=== PATIENT | female | born 1950 | race African-American/Black ===

== ENCOUNTER 2017-07-28 10:19 | Emergency (ER) | payer MEDICARE, OTHER ==
[2017-07-28] MEDS ORDERED: Ondansetron ODT 4 MG TAB ONE (11:33)
[2017-07-28] MEDS ORDERED: Dexamethasone 10 MG/ML VIAL ONE (13:58)
== END 2017-07-28 14:16 | disposition home or self-care (01) ==
LOC: ERS 10:19
DX: J30.9 Allergic rhinitis, unspecified (principal); R09.82 Postnasal drip; E78.5 Hyperlipidemia, unspecified; E11.9 Type 2 diabetes mellitus without complications; E03.9 Hypothyroidism, unspecified; M06.9 Rheumatoid arthritis, unspecified; F17.210 Nicotine dependence, cigarettes, uncomplicated; Z79.4 Long term (current) use of insulin
CPT/HCPCS: 87081; 87430; 96372; 99406; J1100; Q0162

== ENCOUNTER 2017-08-19 13:29 | Inpatient (IN) | payer MEDICARE, OTHER ==
[2017-08-19] MEDS ORDERED: Ondansetron HCl/PF 4 MG/2 ML Vial ONE (14:08)
[2017-08-19] MEDS ORDERED: Fentanyl 100 MCG/2 ML VIAL ONE (14:08)
[2017-08-19 14:21] LABS: #Eosinphils 0.1 thou/uL (0.0-0.7); #Lymphocytes 2.5 thou/uL (1.20-3.40); #Monocytes 0.7 thou/uL (0.11-0.59); #Neutrophils 5.7 thou/uL (1.40-6.50); %Eosinophils 0.9 % (0.0-10.0); %Lymphocytes 27.6 % (21.0-51.0); %Monocytes 7.6 % (0.0-10.0); %Neutrophils 63.9 % (42.0-75.0); Hemoglobin 13.1 g/dL (12.0-16.0); Mean Corpuscular HGB CONC 33.4 g/dL (32.0-36.0); Mean Corpuscular Hemoglobin 29.3 pg (27.0-31.0); Mean Corpuscular Volume 87.6 fl (81.0-99.0); Mean Platelet Volume 7.1 fL (7.4-10.4); Platelet Count 325 thou/uL (130-400); Red Blood Cell (RBC) Count 4.48 mill/uL (4.20-5.40); White Blood Cell (WBC) Count 8.9 thou/uL (4.8-10.8)
[2017-08-19 14:27] LABS: Prothrombin Time 12.8 SEC (12.0-14.7)
[2017-08-19 14:28] LABS: ALT (SGPT) 11 U/L (8-55); AST (SGOT) 17 U/L (5-34); Alkaline Phosphatase 87 U/L (40-150); Anion Gap 16 mmol/L (10-20); BUN (Urea Nitrogen) 13 mg/dL (9.8-20.1); Bilirubin, Total 0.5 mg/dL (0.2-1.2); Calc. Creatinine Clearance 0 mL/min (70-130); Calcium 10.1 mg/dL (7.8-10.44); Carbon Dioxide 23 mmol/L (23-31); Chloride 104 mmol/L (98-107); Estimated GFR-MDRD 89; Globulin 3.6 g/dL (2.4-3.5); Glucose 200 mg/dL (80-115); Magnesium 2.2 mg/dL (1.6-2.6); Potassium 4.1 mmol/L (3.5-5.1); Protein, Total 7.6 g/dL (6.0-8.3); Sodium 139 mmol/L (136-145)
[2017-08-19 14:32] LABS: CKMB 1.1 ng/mL (0-6.6); Troponin I Less than 0.010 ng/mL (< 0.028)
[2017-08-19] MEDS ORDERED: ISOVUE-370 76%-LOCM 1 ML ONE (14:49)
--- NOTE | 2017-08-19 14:53 | RAD ---
SINGLE VIEW CHEST: Date: 08/19/17 COMPARISON: 02/17/15. HISTORY: Chest pain and shortness of breath for 5 days. FINDINGS: Single view of the chest shows a normal sized cardiomediastinal silhouette. There is no evidence of c onsolidation, mass, or pleural effusion. Hardware is seen in the cervical spine. IMPRESSION: No evidence of acute cardiopulmonary disease. POS: [facility]
[2017-08-19] MEDS ORDERED: Dextrose 50% Abboject 50 ML SYRINGE ONE ×2 (15:32→17:33)
[2017-08-19] MEDS ORDERED: Nitroglycerin 2% Ointment 1 INCH/1 GM Packet ONE ×2 (15:36→15:37)
--- NOTE | 2017-08-19 17:01 | CT ---
CTA AORTIC DISSECTION PROTOCOL UTILIZING IV CONTRAST AND 3D REFORMATTED IMAGING: FINDINGS: No aortic stenosis, occlusion, or aneurysmal formation is demonstrated. The celiac, SMA, and renal arteries are widely patent. The BRANDYN is widely patent. No definite central pulmonary embolus is evident. There is some subsegmental volume loss involving the lung bases. No enlarged lymph nodes are evident. There is focal fatty infiltration near the falciform ligament. There is a 3.9 x 2 cm hypodensity wit hin the superior aspect of the right hepatic lobe, stable since 2004, likely reflecting an area of fo antonella fatty infiltration. The adrenal glands, pancreas, spleen, and kidneys appear within normal limits. There is scattered degenerative and osteoarthritic change. No definite acute osseous abnormality is evident. IMPRESSION: 1. No acute aortic stenosis, occlusion, or aneurysmal formation demonstrated. 2. Hypodense lesions involving the right hepatic dome, as well as the liver adjacent to the falcifor m ligament, are stable since 2014, likely reflecting areas of focal fatty infiltration. 3. Bibasilar volume loss. 4. Other chronic findings as above. POS: [facility]
[2017-08-19] MEDS ORDERED: Nitroglycerin 0.4 MG TAB (25 Tab Bottle) ONE (17:39)
[2017-08-19 18:05] LABS: Troponin I Less than 0.010 ng/mL (< 0.028)
[2017-08-19] MEDS ORDERED: Ondansetron HCl/PF 4 MG in Sodium Chloride 0.9% 50 ML IVPB PRN (18:05)
[2017-08-19] MEDS ORDERED: Zolpidem Tartrate 5 MG TAB PO PRN (18:05)
[2017-08-19] MEDS ORDERED: Nitroglycerin 0.4 MG TAB (25 Tab Bottle) SL PRN (18:05)
[2017-08-19] MEDS ORDERED: Dextrose 5% in Water 1,000 ML IV PRN (18:09)
[2017-08-19] MEDS ORDERED: Dextrose 50% Abboject 50 ML SYRINGE SLOW IVP PRN (18:09)
[2017-08-19] MEDS ORDERED: Ibuprofen 100 MG/5 ML UDCUP PO PRN (18:11)
[2017-08-19 18:45] LABS: Hemoglobin A1c 7.9 % (4.0-6.0)
[2017-08-19 21:18] LABS: CKMB 1.1 ng/mL (0-6.6); Troponin I Less than 0.010 ng/mL (< 0.028)
--- NOTE | 2017-08-19 22:43 | HP ---
DATE OF ADMISSION: 08/19/2017 ADMITTING DIAGNOSIS: Chest pain. HISTORY OF PRESENT ILLNESS: This is a 66-year-old female who is being admitted to the [facility] of chest pain. The patient states that the pain started about 4-5 days ago and has been getting p rogressively worse in nature. The patient states that the pain is tight as well as sharp knife-like, worse with deep inspiration, started in the right upper back and has now gone to the right upper salvatore st on the front as well as whole chest. The patient states that she has had pain like this before; h owever, it has never been to this extreme. The patient states pain when it occurs is 10/10 in nature . Denies any other associated symptoms or complaints. Does admit to bout of nausea for a few days l ast week; however, currently does not have any. The patient was seen in the emergency room and a CT dissection protocol was done and was found to be negative for any dissection. The patient's chest x- ray was also done in the emergency room, which was found to have no acute cardiopulmonary disease pro cess noted. The patient does admit to smoking about a pack a day every 2-3 days for more than 55 yea rs. The patient's also smokes actively and has COPD. The patient herself states that she sams s never been told she has COPD. States that she was last seen by her primary care physician about 2 months ago and everything was normal. The patient denies any other associated symptoms or complaints . No alleviating or aggravating factors noted. at bedside examined in the ER. All question s answered. ALLERGIES: No known drug allergies. PAST MEDICAL HISTORY: Hypothyroidism, diabetes mellitus type 2, chronic smoking, hypertension, hyper lipidemia, diabetic neuropathy. FAMILY HISTORY: Pertinent for diabetes, hypertension on both sides. Mother, however, does not have any medical issues, otherwise both sides of the family has diabetes, hypertension, as well as coronar y artery disease. SOCIAL HISTORY: One to two packs a day every 2-3 days for 55+ years. No alcoholic beverages consume d. REVIEW OF SYSTEMS: Twelve-point review of systems performed. Pertinent positive in the HPI, otherwi se negative. PHYSICAL EXAMINATION: VITAL SIGNS: Blood pressure 115/88, heart rate of 88, respiratory rate of 12, O2 saturation 98% on 2 liters nasal cannula, temperature of 98 degrees Fahrenheit. GENERAL: The patient appears in mild distress, sitting up in bed, labored breathing noted. HEENT: Pupils equal, round, react to light and accommodation. Extraocular muscles are intact. Oral cavity moist and pink. Thyroid palpable, nontender, mobile. LUNGS: Increased AP diameter. Labored breathing noted. Clear to auscultation bilaterally. CARDIOVASCULAR: Regular rate and rhythm. S1, S2. No murmurs, rubs, or gallops appreciated. ABDOMEN: Positive bowel sounds, soft, nontender. EXTREMITIES: A 2+ peripheral pulses. Trace edema in bilateral lower extremities. NEUROLOGIC: Cranial nerves II-XII intact. Alert and oriented x3, obese patient. LABORATORY DATA: CBC within normal limits. Basic metabolic panel shows blood glucose less than 35. Rest of the BMP is normal. ASSESSMENT: 1. Chest pain. 2. Hypotension. 3. Diabetes mellitus type 2. 4. Hypothyroidism. 5. Hyperlipidemia. 6. Diabetic neuropathy. 7. Shortness of breath. 8. Dyspnea on exertion. PLAN: 1. At this point in time, we will place the patient on Internal Medicine with telemetry monitoring. Consult Cardiology. 2. We will also start the patient on D5 infusion and hold her insulins and start her on a sliding sc yaima for now. We will restart her home insulin once her blood sugars have normalized. 3. We will also obtain repeat chest x-ray tomorrow, place on nasal cannula, echocardiogram, trend en zymes. The patient may be having a bout of COPD versus pleuritic chest pain, start the patient on NS AIDs for pleuritic chest pain. Blood pressure normalized at this point in time. Earlier in the ER, the patient's blood pressure was a little low. The patient wishes to remain a FULL CODE. We will fo llow up with lab results in the morning as well as recommendations from Cardiology team. Case and pl an discussed with patient and at length. They understand and agree with this plan.
[2017-08-19] MEDS: Colchicine 0.6 MG TAB PO SCH (23:29)
[2017-08-19] MEDS: Ezetimibe 10 MG TAB PO SCH (23:29)
[2017-08-19] MEDS: Famotidine 20 MG TAB PO SCH (23:29)
[2017-08-19] MEDS: Simvastatin 40 MG TAB PO SCH (23:29)
[2017-08-19] MEDS: Morphine 4 MG/ML VIAL SLOW IVP PRN (23:30)
[2017-08-19 23:58] LABS: Troponin I Less than 0.010 ng/mL (< 0.028)
[2017-08-20] MEDS: Acetaminophen 325 MG TAB PO PRN ×2 (02:07→08:04)
[2017-08-20 05:09] LABS: #Eosinphils 0.3 thou/uL (0.0-0.7); #Lymphocytes 2.7 thou/uL (1.20-3.40); #Monocytes 0.8 thou/uL (0.11-0.59); %Basophils 0.6 % (0.0-1.0); %Eosinophils 5.3 % (0.0-10.0); %Lymphocytes 46.4 % (21.0-51.0); %Monocytes 13.1 % (0.0-10.0); %Neutrophils 34.6 % (42.0-75.0); Hemoglobin 11.1 g/dL (12.0-16.0); Mean Corpuscular HGB CONC 32.5 g/dL (32.0-36.0); Mean Corpuscular Hemoglobin 28.8 pg (27.0-31.0); Mean Corpuscular Volume 88.5 fl (81.0-99.0); Mean Platelet Volume 6.8 fL (7.4-10.4); Platelet Count 296 thou/uL (130-400); Red Blood Cell (RBC) Count 3.85 mill/uL (4.20-5.40); White Blood Cell (WBC) Count 5.9 thou/uL (4.8-10.8)
[2017-08-20 05:20] LABS: Anion Gap 8 mmol/L (10-20); BUN (Urea Nitrogen) 15 mg/dL (9.8-20.1); Calc. Creatinine Clearance 128 mL/min (70-130); Calcium 9.2 mg/dL (7.8-10.44); Carbon Dioxide 27 mmol/L (23-31); Chloride 108 mmol/L (98-107); Estimated GFR-MDRD Greater than 90; Glucose 93 mg/dL (80-115); Sodium 139 mmol/L (136-145)
[2017-08-20 05:23] LABS: CKMB 1.1 ng/mL (0-6.6); Troponin I Less than 0.010 ng/mL (< 0.028)
[2017-08-20] MEDS: Morphine 4 MG/ML VIAL SLOW IVP PRN (05:49)
[2017-08-20] MEDS: Levothyroxine Sodium 75 MCG TAB PO SCH (05:49)
[2017-08-20] MEDS: Lisinopril 2.5 MG TAB PO SCH (08:05)
[2017-08-20] MEDS: Colchicine 0.6 MG TAB PO SCH ×2 (08:05→20:55)
[2017-08-20] MEDS ORDERED: Ondansetron 2MG/ML MDV 4 MG in Sodium Chloride 0.9% 50 ML IVP PRN (08:15)
--- NOTE | 2017-08-20 08:15 | RAD ---
CHEST ONE VIEW: History: Dyspnea. Follow up. Comparison: 08-19-17 FINDINGS: Cardiac silhouette is magnified by projection. Pulmonary vasculature is unremarkable. Mediastinum is midline. No lobar consolidation or evidence of pneumothorax. IMPRESSION: 1. Stable radiographic appearance of the chest. POS: [facility]
[2017-08-20] MEDS: Famotidine 20 MG TAB PO SCH ×2 (08:38→20:55)
--- NOTE | 2017-08-20 10:15 | PDOC.PN ---
- Subjective Encounter Start Date: 08/20/17 Encounter Start Time: 11:10 Subjective: Patient with persisent chest wall pain, worse with deep breaths, -: lying flat, movement and pressing on anterior chest wall. A little -: better with Toradol. - Objective MAR Reviewed: Yes Vital Signs & Weight: Vital Signs (12 hours) Temp Pulse Resp BP Pulse Ox 08/20/17 08:05 69 08/20/17 07:34 98.3 F 69 16 96 08/20/17 07:24 98.3 F 69 16 141/64 H 96 08/20/17 04:43 97.8 F 76 15 116/59 L 98 08/19/17 22:41 98.0 F 79 19 139/68 92 L Weight Admit Weight 199 lb 12.8 oz Weight 199 lb 12.8 oz Result Diagrams: 08/20/17 04:20 08/20/17 04:20 Additional Labs: Accuchecks 08/20/17 08/19/17 08/19/17 06:32 18:58 18:12 POC Glucose 142 H 102 114 H Phys Exam - Physical Examination Constitutional: NAD HEENT: moist MMs Respiratory: no wheezing, no rales, no rhonchi, clear to auscultation bilateral TTP anteriorly bilaterally that reproduces the pain Cardiovascular: RRR, no significant murmur Gastrointestinal: soft, positive bowel sounds Musculoskeletal: no edema Neurological: non-focal, moves all 4 limbs Psychiatric: normal affect, A&O x 3 Dx/Plan (1) Chest pain Code(s): R07.9 - CHEST PAIN, UNSPECIFIED Status: Acute Qualifiers: Chest pain type: chest pain on breathing Qualified Code(s): R07.1 - Chest pain on breathing; R07.81 - Pleurodynia Comment: on NSAIDS (2) Diabetes 1.5, managed as type 2 Code(s): E13.9 - OTHER SPECIFIED DIABETES MELLITUS WITHOUT COMPLICATIONS Status: Chronic Comment: low blood sugar on admit, holding home insulin until eating well (3) Hyperlipidemia Code(s): E78.5 - HYPERLIPIDEMIA, UNSPECIFIED Status: Chronic (4) Hypothyroidism Code(s): E03.9 - HYPOTHYROIDISM, UNSPECIFIED Status: Chronic (5) Obesity (BMI 30-39.9) Code(s): E66.9 - OBESITY, UNSPECIFIED Status: Chronic (6) Tobacco abuse Code(s): Z72.0 - TOBACCO USE Status: Chronic - Plan cont current plan of care appreciate cardiology imput, NSAIDS and colchicine overnight, possibly -: home tomorrow * . - Discharge Day Encounter end time: 11:30
[2017-08-20] MEDS ORDERED: Ketorolac Tromethamine 30 MG/ML VIAL IVP SCH (10:28)
[2017-08-20] MEDS ORDERED: Aspirin 81 mg Enteric Coated Tablet PO SCH (10:30)
[2017-08-20] MEDS: Sodium Chloride 0.9% 1,000 ML IV SCH (10:58)
[2017-08-20] MEDS: Ketorolac Tromethamine 30 MG/ML VIAL IVP SCH ×2 (11:01→17:02)
--- NOTE | 2017-08-20 12:35 | CON ---
DATE OF CONSULTATION: 08/20/2017 PRIMARY CONTROL ROOM HELPER: Dr. Hermes Thrasher REASON FOR CONSULTATION: Chest pain. HISTORY OF PRESENT ILLNESS: Ms. Trisha Araiza is a delightful 66-year-old woman who has been havin g chest pain for about 2 weeks. It is continuous. It hurts when she presses with her fingers, hurts when she sits up or moves in any way. The patient has no pressure, heaviness, or squeezing typical of angina, but her pain is intense. PAST MEDICAL HISTORY: 1. Diabetes. 2. Hypertension. 3. She says she has rheumatoid arthritis with "a touch of lupus" as well as gout. MEDICATIONS PRIOR TO ADMISSION: 1. The patient was taking simvastatin. 2. Zetia. 3. Aspirin. 4. Tramadol as needed. 5. Colchicine which she had been out for a couple of weeks. ALLERGIES: None known. REVIEW OF SYSTEMS: CONSTITUTIONAL: No significant weight gain or loss. VISION: No changes. HEARING: No changes. PULMONARY: No cough or wheezing. GASTROINTESTINAL: No nausea, vomiting, diarrhea. SKIN: No rashes. NEUROLOGIC: No unilateral weakness or numbness. PSYCHIATRIC: No unusual depression or anxiety. HEMATOLOGIC: No unusual bruising. GENITOURINARY: No burning with urination. PHYSICAL EXAMINATION: GENERAL: This is a pleasant 66-year-old woman with a lot of chest pain. VITAL SIGNS: Her blood pressure 141/64, pulse 70, it is regular. LUNGS: Clear. CARDIAC: Normal S1, normal S2. There is no murmur, rub or gallop. ABDOMEN: Soft, nontender, no hepatosplenomegaly. EXTREMITIES: Warm, dry, no clubbing or cyanosis, no edema. Peripheral pulses are intact. SKIN: Warm and dry. PERTINENT LABORATORY AND X-RAY FINDINGS: Troponin levels are negative. Her creatinine level is 0.6. Her hemoglobin is 11.1. A recent cardiac catheterization by Dr. Thrasher done in 2014 showed no significant coronary disease, only mild nonobstructive plaque. The LAD had a 20% stenosis. On examination the patient's pain is duplicated with palpation of the costochondral junctions and ihsan rnum. ASSESSMENT: 1. Chest wall pain. 2. History of arthritis. 3. Diabetes. 4. No significant coronary disease at catheterization 2014. 5. History of rheumatoid arthritis, "lupus touch" and gout. PLAN: 1. Agree with restarting colchicine. 2. We will give her intravenous Toradol for 24 hours. 3. If needed, steroids could be given, but blood sugar would need to be followed as that would incre ase her blood sugar. 4. Dr. Thrasher to resume care tomorrow. The patient's pain does not appear of cardiac origin.
[2017-08-20] MEDS: HumaLOG 300 UNITS/3 ML VIAL SC PRN ×3 (12:51→20:56)
[2017-08-20 12:57] LABS: Troponin I Less than 0.010 ng/mL (< 0.028)
[2017-08-20] MEDS: Simvastatin 40 MG TAB PO SCH (20:55)
[2017-08-20] MEDS: Ezetimibe 10 MG TAB PO SCH (20:55)
[2017-08-21] MEDS: Ketorolac Tromethamine 30 MG/ML VIAL IVP SCH ×3 (00:49→11:21)
[2017-08-21] MEDS: Sodium Chloride 0.9% 1,000 ML IV SCH (00:49)
[2017-08-21 04:54] LABS: #Eosinphils 0.3 thou/uL (0.0-0.7); #Monocytes 0.5 thou/uL (0.11-0.59); #Neutrophils 1.7 thou/uL (1.40-6.50); %Basophils 0.4 % (0.0-1.0); %Eosinophils 5.6 % (0.0-10.0); %Lymphocytes 45.1 % (21.0-51.0); %Monocytes 11.8 % (0.0-10.0); %Neutrophils 37.1 % (42.0-75.0); Hemoglobin 11.4 g/dL (12.0-16.0); Mean Corpuscular Hemoglobin 29.1 pg (27.0-31.0); Mean Corpuscular Volume 88.3 fl (81.0-99.0); Mean Platelet Volume 6.6 fL (7.4-10.4); Platelet Count 290 thou/uL (130-400); RBC Distribution Width 13.6 % (11.5-14.5); Red Blood Cell (RBC) Count 3.93 mill/uL (4.20-5.40); White Blood Cell (WBC) Count 4.5 thou/uL (4.8-10.8)
[2017-08-21 05:16] LABS: Anion Gap 10 mmol/L (10-20); BUN (Urea Nitrogen) 12 mg/dL (9.8-20.1); Calc. Creatinine Clearance 135 mL/min (70-130); Carbon Dioxide 23 mmol/L (23-31); Chloride 106 mmol/L (98-107); Estimated GFR-MDRD Greater than 90; Glucose 211 mg/dL (80-115); Sodium 135 mmol/L (136-145)
[2017-08-21] MEDS: Levothyroxine Sodium 75 MCG TAB PO SCH (05:22)
[2017-08-21 05:57] VITALS: BMI 37.1
[2017-08-21] MEDS: Famotidine 20 MG TAB PO SCH (08:04)
[2017-08-21] MEDS: HumaLOG 300 UNITS/3 ML VIAL SC PRN ×2 (08:04→12:32)
[2017-08-21] MEDS: Lisinopril 2.5 MG TAB PO SCH (08:04)
[2017-08-21] MEDS: Colchicine 0.6 MG TAB PO SCH (08:04)
--- NOTE | 2017-08-21 08:49 | PDOC.PN ---
- Subjective Encounter Start Date: 08/21/17 Encounter Start Time: 11:30 Subjective: Patient with some improvement in chest pain with Toradol. No other symptoms - Objective MAR Reviewed: Yes Vital Signs & Weight: Vital Signs (12 hours) Temp Pulse Resp BP Pulse Ox 08/21/17 08:04 79 08/21/17 07:40 98.2 F 79 18 137/65 97 08/21/17 04:27 97.7 F 70 16 96/52 L 92 L 08/21/17 00:31 98.1 F 69 18 137/71 99 08/20/17 20:56 98 F 74 16 98 Weight Admit Weight 199 lb 12.8 oz Weight 203 lb 1.6 oz I&O: 08/20/17 08/21/17 08/22/17 06:59 06:59 06:59 Intake Total 1420 Output Total 400 Balance 1020 Result Diagrams: 08/21/17 04:15 08/21/17 04:15 Additional Labs: Accuchecks 08/21/17 08/20/17 08/20/17 05:48 20:45 16:50 POC Glucose 237 H 392 H 292 H 08/20/17 12:36 POC Glucose 472 H Phys Exam - Physical Examination Constitutional: NAD HEENT: moist MMs Respiratory: no wheezing, no rales, no rhonchi anterior chest wall TTP, reproduces pain Cardiovascular: RRR Gastrointestinal: soft, positive bowel sounds Neurological: non-focal, moves all 4 limbs Psychiatric: normal affect, A&O x 3 Dx/Plan (1) Chest pain Code(s): R07.9 - CHEST PAIN, UNSPECIFIED Status: Acute Qualifiers: Chest pain type: chest pain on breathing Qualified Code(s): R07.1 - Chest pain on breathing; R07.81 - Pleurodynia Comment: on NSAIDS, ECHO with EF 65-70%, diastolic dysfunction (2) Diabetes 1.5, managed as type 2 Code(s): E13.9 - OTHER SPECIFIED DIABETES MELLITUS WITHOUT COMPLICATIONS Status: Chronic Comment: low blood sugar on admit, holding home insulin until eating well (3) Hyperlipidemia Code(s): E78.5 - HYPERLIPIDEMIA, UNSPECIFIED Status: Chronic (4) Hypothyroidism Code(s): E03.9 - HYPOTHYROIDISM, UNSPECIFIED Status: Chronic (5) Obesity (BMI 30-39.9) Code(s): E66.9 - OBESITY, UNSPECIFIED Status: Chronic (6) Tobacco abuse Code(s): Z72.0 - TOBACCO USE Status: Chronic - Plan cont current plan of care Cleared by cardiology, home today on NSAIDS * . - Discharge Day Encounter end time: 12:00
[2017-08-21] MEDS ORDERED: Aspirin 81 mg Enteric Coated Tablet PO SCH ×2 (09:00)
[2017-08-21] MEDS ORDERED: Insulin NPH/Reg Insulin Hm 300 UNITS/3 ML VIAL SC SCH ×2 (09:15→21:00)
[2017-08-21 11:30] VITALS: BP 142/65; TEMP 97.9
--- NOTE | 2017-08-22 14:33 | DIS ---
PRIMARY CARE PHYSICIAN: Dr. Mumtaz Sutton PRIMARY INVERFORM MACHINE OPERATOR: Dr. Thrasher. REASON FOR ADMISSION: Chest pain. DISCHARGE DIAGNOSES: 1. Atypical chest pain, likely musculoskeletal. 2. Diabetes mellitus type 2. 3. Hyperlipidemia. 4. Hypothyroidism. 5. Obesity. 6. Tobacco abuse. PROCEDURES: 1. CT dissection protocol showing no evidence of aortic dissection or stenosis or aneurysm. 2. Echocardiogram showing ejection fraction of 65-70% and diastolic dysfunction. CONSULTATIONS: Cardiology, Dr. Barron for Dr. Thrasher. HOSPITAL COURSE: This is a 66-year-old female with known history of diabetes, but no coronary artery disease who is a smoker. She came in with a 4-5 day history of chest pain, sharp knife-like, worse with inspiration. It started in her right upper back and moved to her chest. She had something marilyn lar before, but never this bad. The patient had a negative CT dissection protocol. She was admitted and Cardiology was consulted. Dr. Barron and Dr. Thrasher saw her. She had an echocardiogram as ab ove. The patient was determined to have a musculoskeletal chest wall pain. She was put on Toradol w ith improvement in her pain. The day of discharge Dr. Thrasher cleared her for discharge to follow u p with him and do a stress test as an outpatient. DISCHARGE MANAGEMENT: Discharged home. Follow up with Dr. Thrasher in 2-[address] Herman lopez 7 days. ACTIVITY: As tolerated. DIET: Diabetic diet. The patient is to stop smoking. DISCHARGE MEDICATIONS: 1. Indomethacin 50 mg every 8 hours as needed for pain. 2. Lisinopril 2.5 mg daily. 3. Metoprolol succinate 25 mg daily. 4. Protonix 40 mg daily. 5. Tramadol as needed. 6. Zetia 1 tablet each night. 7. Simvastatin 40 mg at night. 8. Tylenol with codeine as needed. 9. Aspirin 81 mg daily. 10. Humalog 70/25, 50 units in the morning and 30 units at night. 11. Colchicine 0.6 mg twice a day. 12. Levothyroxine 75 mcg daily.
== END 2017-08-21 13:08 | disposition home or self-care (01) | DRG 313 ==
LOC: ERS 13:29 → 2NO 17:54
PROVIDERS: ADMIT Internal Medicine; ATTEND Internal Medicine
DX: R07.89 Other chest pain (principal); E11.42 Type 2 diabetes mellitus with diabetic polyneuropathy; E03.9 Hypothyroidism, unspecified; E78.5 Hyperlipidemia, unspecified; E66.9 Obesity, unspecified; F17.210 Nicotine dependence, cigarettes, uncomplicated; Z68.36 Body mass index [BMI] 36.0-36.9, adult; Z79.82 Long term (current) use of aspirin; Z79.4 Long term (current) use of insulin; Z79.899 Other long term (current) drug therapy
CPT/HCPCS: 36415; 36416; 71045; 71275; 80048; 80053; 82553; 83036; 83735; 83880; 84443; 84484; 84550; 84681; 85025; 85610; 86141; 93005; 93306; 96361; 96374; 96375; 96376; A4216; J1885; J2270; J2405; J3010; J7050

== ENCOUNTER 2017-09-26 20:30 | Emergency (ER) | payer MEDICARE, OTHER ==
--- NOTE | 2017-09-26 21:08 | RAD ---
CHEST ONE VIEW: 09/26/17 HISTORY: Emergency exam. COMPARISON: Chest one view 08/20/17. FINDINGS: Lungs are clear. No pneumothorax or effusion. The cardiac silhouette and mediastinal contours are wit hin normal limits. IMPRESSION: No acute intrathoracic abnormality. POS: [facility]
[2017-09-26 21:12] LABS: #Basophils 0.1 thou/uL (0.0-0.2); #Eosinphils 0.1 thou/uL (0.0-0.7); #Lymphocytes 3.1 thou/uL (1.20-3.40); #Monocytes 1.1 thou/uL (0.11-0.59); #Neutrophils 4.5 thou/uL (1.40-6.50); %Basophils 0.9 % (0.0-1.0); %Eosinophils 1.2 % (0.0-10.0); %Lymphocytes 35.2 % (21.0-51.0); %Monocytes 12.1 % (0.0-10.0); %Neutrophils 50.6 % (42.0-75.0); Hemoglobin 12.8 g/dL (12.0-16.0); Mean Corpuscular HGB CONC 33.3 g/dL (32.0-36.0); Mean Corpuscular Hemoglobin 29.5 pg (27.0-31.0); Mean Corpuscular Volume 88.6 fl (81.0-99.0); Mean Platelet Volume 6.7 fL (7.4-10.4); Platelet Count 361 thou/uL (130-400); RBC Distribution Width 13.4 % (11.5-14.5); Red Blood Cell (RBC) Count 4.34 mill/uL (4.20-5.40); White Blood Cell (WBC) Count 8.8 thou/uL (4.8-10.8)
[2017-09-26 21:29] LABS: ALT (SGPT) 12 U/L (8-55); AST (SGOT) 14 U/L (5-34); Albumin 4.2 g/dL (3.4-4.8); Alkaline Phosphatase 89 U/L (40-150); Anion Gap 13 mmol/L (10-20); BUN (Urea Nitrogen) 10 mg/dL (9.8-20.1); CK (CPK) 104 U/L (29-168); Calc. Creatinine Clearance 0 mL/min (70-130); Calcium 10.3 mg/dL (7.8-10.44); Carbon Dioxide 25 mmol/L (23-31); Chloride 105 mmol/L (98-107); Estimated GFR-MDRD Greater than 90; Globulin 3.1 g/dL (2.4-3.5); Glucose 79 mg/dL (80-115); Lipase 4 U/L (8-78); Potassium 3.1 mmol/L (3.5-5.1); Protein, Total 7.3 g/dL (6.0-8.3); Sodium 140 mmol/L (136-145)
[2017-09-26 21:33] LABS: CKMB 1.2 ng/mL (0-6.6); Troponin I Less than 0.010 ng/mL (< 0.028)
[2017-09-26] MEDS ORDERED: Diazepam 5 MG TAB ONE (21:51)
[2017-09-26] MEDS ORDERED: Potassium Chloride 20 MEQ TAB ONE (22:32)
[2017-09-26] MEDS ORDERED: Lidocaine Viscous Sol 2% 15 ml UD Cup ONE (23:40)
[2017-09-26] MEDS ORDERED: Mag-Al 1200 mg/1200 mg/30 ML UDCUP ONE (23:40)
[2017-09-26 23:44] LABS: Troponin I 0.014 ng/mL (< 0.028)
--- NOTE | 2017-09-28 17:22 | EKG ---
Test Reason : Blood Pressure : / mmHG Vent. Rate : 110 BPM Atrial Rate : 110 BPM P-R Int : 128 ms QRS Dur : 068 ms QT Int : 340 ms P-R-T Axes : 063 003 052 degrees QTc Int : 460 ms Sinus tachycardia Otherwise normal ECG Confirmed by WENDY VEGA ([id number]), editorial cartoonist DINESH HOLDER ([id number]) on 09/28/2017 5:22:06 PM Referred By: Confirmed By:WENDY VEGA
== END 2017-09-27 00:18 | disposition home or self-care (01) ==
LOC: ERS 20:30
DX: R07.9 Chest pain, unspecified (principal); E03.9 Hypothyroidism, unspecified; E11.9 Type 2 diabetes mellitus without complications; Z79.4 Long term (current) use of insulin; F17.210 Nicotine dependence, cigarettes, uncomplicated; Z79.82 Long term (current) use of aspirin; Z79.891 Long term (current) use of opiate analgesic; Z79.899 Other long term (current) drug therapy
CPT/HCPCS: 36415; 71045; 80053; 82550; 82553; 83690; 84484; 85025; 85379; 93005; 99406

== ENCOUNTER 2017-09-27 10:39 | Emergency (ER) | payer MEDICARE, OTHER ==
[2017-09-27 11:36] LABS: #Basophils 0.1 thou/uL (0.0-0.2); #Eosinphils 0.1 thou/uL (0.0-0.7); #Lymphocytes 1.7 thou/uL (1.20-3.40); #Monocytes 0.8 thou/uL (0.11-0.59); #Neutrophils 4.5 thou/uL (1.40-6.50); %Basophils 0.9 % (0.0-1.0); %Eosinophils 0.7 % (0.0-10.0); %Lymphocytes 23.9 % (21.0-51.0); %Monocytes 11.1 % (0.0-10.0); %Neutrophils 63.4 % (42.0-75.0); Hemoglobin 12.3 g/dL (12.0-16.0); Mean Corpuscular HGB CONC 33.6 g/dL (32.0-36.0); Mean Corpuscular Hemoglobin 30.1 pg (27.0-31.0); Mean Corpuscular Volume 89.5 fl (81.0-99.0); Mean Platelet Volume 6.7 fL (7.4-10.4); Platelet Count 312 thou/uL (130-400); RBC Distribution Width 13.4 % (11.5-14.5); Red Blood Cell (RBC) Count 4.09 mill/uL (4.20-5.40); White Blood Cell (WBC) Count 7.1 thou/uL (4.8-10.8)
--- NOTE | 2017-09-27 11:43 | RAD ---
SINGLE VIEW OF THE CHEST: COMPARISON: 09/26/17. HISTORY: Chest pain. FINDINGS: Single view of the chest shows a normal sized cardiomediastinal silhouette. There is no evidence of c onsolidation, mass, or pleural effusion. Degenerative changes are seen in the spine. Hardware is see n in the cervical spine. IMPRESSION: No evidence of acute cardiopulmonary disease. POS: [facility]
[2017-09-27 11:50] LABS: ALT (SGPT) 10 U/L (8-55); AST (SGOT) 14 U/L (5-34); Albumin 3.8 g/dL (3.4-4.8); Alkaline Phosphatase 81 U/L (40-150); Anion Gap 15 mmol/L (10-20); BUN (Urea Nitrogen) 11 mg/dL (9.8-20.1); Bilirubin, Total 0.9 mg/dL (0.2-1.2); CK (CPK) 72 U/L (29-168); Calc. Creatinine Clearance 0 mL/min (70-130); Calcium 9.3 mg/dL (7.8-10.44); Carbon Dioxide 22 mmol/L (23-31); Chloride 105 mmol/L (98-107); Estimated GFR-MDRD Greater than 90; Globulin 2.8 g/dL (2.4-3.5); Glucose 223 mg/dL (80-115); Potassium 3.5 mmol/L (3.5-5.1); Protein, Total 6.6 g/dL (6.0-8.3); Sodium 138 mmol/L (136-145)
[2017-09-27 11:53] LABS: CKMB 1.3 ng/mL (0-6.6); Troponin I Less than 0.010 ng/mL (< 0.028)
[2017-09-27] MEDS ORDERED: Morphine 4 MG/ML VIAL ONE (12:07)
[2017-09-27] MEDS ORDERED: Ketorolac Tromethamine 30 MG/ML VIAL ONE (12:07)
== END 2017-09-27 16:12 | disposition home or self-care (01) ==
LOC: ERS 10:39
DX: S29.011A Strain of muscle and tendon of front wall of thorax, initial encounter (principal); M32.9 Systemic lupus erythematosus, unspecified; M06.9 Rheumatoid arthritis, unspecified; E78.5 Hyperlipidemia, unspecified; E11.9 Type 2 diabetes mellitus without complications; E03.9 Hypothyroidism, unspecified; M10.9 Gout, unspecified; F17.210 Nicotine dependence, cigarettes, uncomplicated; Z79.4 Long term (current) use of insulin; Z79.82 Long term (current) use of aspirin; Z79.899 Other long term (current) drug therapy; X58.XXXA Exposure to other specified factors, initial encounter
CPT/HCPCS: 36415; 36416; 71045; 80053; 82550; 82553; 84484; 85025; 93005; 94760; 96374; 96375; J1885; J2270

== ENCOUNTER 2017-10-16 03:44 | Emergency (ER) | payer MEDICARE, OTHER ==
[2017-10-16 04:29] LABS: #Eosinphils 0.1 thou/uL (0.0-0.7); #Monocytes 0.8 thou/uL (0.11-0.59); #Neutrophils 3.9 thou/uL (1.40-6.50); %Basophils 0.5 % (0.0-1.0); %Eosinophils 1.2 % (0.0-10.0); %Lymphocytes 38.4 % (21.0-51.0); %Monocytes 9.7 % (0.0-10.0); %Neutrophils 50.1 % (42.0-75.0); Hemoglobin 12.9 g/dL (12.0-16.0); Mean Corpuscular HGB CONC 32.5 g/dL (32.0-36.0); Mean Corpuscular Hemoglobin 28.6 pg (27.0-31.0); Mean Corpuscular Volume 87.9 fl (81.0-99.0); Mean Platelet Volume 6.4 fL (7.4-10.4); Platelet Count 303 thou/uL (130-400); RBC Distribution Width 13.2 % (11.5-14.5); White Blood Cell (WBC) Count 7.8 thou/uL (4.8-10.8)
[2017-10-16] MEDS ORDERED: Lorazepam 2 MG/ML VIAL ONE (04:30)
[2017-10-16 04:50] LABS: ALT (SGPT) 13 U/L (8-55); AST (SGOT) 19 U/L (5-34); Albumin 4.2 g/dL (3.4-4.8); Alkaline Phosphatase 85 U/L (40-150); Anion Gap 17 mmol/L (10-20); BUN (Urea Nitrogen) 7 mg/dL (9.8-20.1); Calc. Creatinine Clearance 0 mL/min (70-130); Calcium 10.1 mg/dL (7.8-10.44); Carbon Dioxide 21 mmol/L (23-31); Chloride 103 mmol/L (98-107); Estimated GFR-MDRD Greater than 90; Globulin 3.2 g/dL (2.4-3.5); Glucose 265 mg/dL (80-115); Protein, Total 7.4 g/dL (6.0-8.3); Sodium 138 mmol/L (136-145)
[2017-10-16 04:54] LABS: CKMB 2.7 ng/mL (0-6.6); Troponin I Less than 0.010 ng/mL (< 0.028)
[2017-10-16 05:24] LABS: Amphetamine Not Detected (NotDetected); Barbiturates Screen Not Detected (NotDetected); Benzodiazepine Screen Not Detected (NotDetected); Cocaine Metabolite Screen Not Detected (NotDetected); Medtox Control Line Valid? VALID (VALID); Medtox Reader # READER 4; Methadone Not Detected (NotDetected); Methamphetamine Not Detected (NotDetected); Opiate Screen Not Detected (NotDetected); Oxycodone Screen Not Detected (NotDetected); Phencyclidine (PCP) Not Detected (NotDetected); THC/Cannabinoid Screen Not Detected (NotDetected); Tricyclic Screen Not Detected (NotDetected)
[2017-10-16] MEDS ORDERED: Potassium Chloride 20 MEQ TAB ONE (05:31)
--- NOTE | 2017-10-16 07:50 | RAD ---
PORTABLE CHEST 1 VIEW: Date: 10/16/17 Time: 0417 hours HISTORY: Chest pain. FINDINGS: Comparison made with exam of 09/27/17. The heart size is normal. The lungs are expanded without focal areas of consolidation, pneumothorax, or pleural effusions. There are postop changes in the lower cervical spine. IMPRESSION: No acute process. POS: [facility]
== END 2017-10-16 06:30 | disposition home or self-care (01) ==
LOC: ERS 03:44
DX: R07.89 Other chest pain (principal); E78.5 Hyperlipidemia, unspecified; E11.9 Type 2 diabetes mellitus without complications; Z79.4 Long term (current) use of insulin; E03.9 Hypothyroidism, unspecified; M10.9 Gout, unspecified; F17.210 Nicotine dependence, cigarettes, uncomplicated; Z79.82 Long term (current) use of aspirin
CPT/HCPCS: 36415; 71045; 80053; 80306; 82553; 84443; 84484; 85025; 85379; 93005; 96374; J2060

== ENCOUNTER 2017-12-15 04:56 | Emergency (ER) | payer MEDICARE, OTHER ==
[2017-12-15 05:44] LABS: #Basophils 0.1 thou/uL (0.0-0.2); #Lymphocytes 3.1 thou/uL (1.20-3.40); #Monocytes 0.8 thou/uL (0.11-0.59); #Neutrophils 3.7 thou/uL (1.40-6.50); %Basophils 1.1 % (0.0-1.0); %Eosinophils 0.6 % (0.0-10.0); %Monocytes 10.5 % (0.0-10.0); %Neutrophils 47.8 % (42.0-75.0); Hemoglobin 12.7 g/dL (12.0-16.0); Mean Corpuscular HGB CONC 33.8 g/dL (32.0-36.0); Mean Corpuscular Hemoglobin 29.6 pg (27.0-31.0); Mean Corpuscular Volume 87.6 fL (78.0-98.0); Mean Platelet Volume 6.7 fL (7.4-10.4); Platelet Count 287 thou/uL (130-400); RBC Distribution Width 13.8 % (11.5-14.5); Red Blood Cell (RBC) Count 4.31 mill/uL (4.20-5.40); White Blood Cell (WBC) Count 7.8 thou/uL (4.8-10.8)
[2017-12-15 06:06] LABS: ALT (SGPT) 9 U/L (8-55); AST (SGOT) 13 U/L (5-34); Albumin 4.1 g/dL (3.4-4.8); Alkaline Phosphatase 75 U/L (40-150); Anion Gap 15 mmol/L (10-20); BUN (Urea Nitrogen) 7 mg/dL (9.8-20.1); Bilirubin, Total 0.6 mg/dL (0.2-1.2); Calc. Creatinine Clearance 0 mL/min (70-130); Calcium 9.7 mg/dL (7.8-10.44); Carbon Dioxide 24 mmol/L (23-31); Chloride 105 mmol/L (98-107); Estimated GFR-MDRD Greater than 90; Globulin 2.8 g/dL (2.4-3.5); Protein, Total 6.9 g/dL (6.0-8.3); Sodium 141 mmol/L (136-145)
[2017-12-15 06:07] LABS: Acetaminophen Less than 6.0 mcg/mL (10.0-30.0); Alcohol Less than 10 mg/dL (Less than 10); CK (CPK) 96 U/L (29-168); Salicylate Less than 8.0 mg/dL (15.0-30.0); Uric Acid 2.6 mg/dL (2.6-6.0)
[2017-12-15 06:14] LABS: Glucose 54 mg/dL (80-115); Potassium 2.8 mmol/L (3.5-5.1)
[2017-12-15 07:35] LABS: Bilirubin Negative (Negative); Blood, Urine Negative (Negative); Clarity CLEAR (Clear); Glucose, Urine (Dipstick) 250 mg/dL (Negative); Leukocyte Negative (Negative); Nitrite Negative (Negative); Protein, Urine (Dipstick) Negative (Neg-Trace); Specific Gravity, Urine 1.008 (1.002-1.036)
[2017-12-15 07:44] LABS: Cocaine Metabolite Screen Not Detected (NotDetected); Medtox Reader # READER 1; Methamphetamine Not Detected (NotDetected); Phencyclidine (PCP) Not Detected (NotDetected); THC/Cannabinoid Screen Not Detected (NotDetected)
[2017-12-15 07:45] LABS: Amphetamine Not Detected (NotDetected); Barbiturates Screen Not Detected (NotDetected); Benzodiazepine Screen Not Detected (NotDetected); Medtox Control Line Valid? VALID (VALID); Methadone Not Detected (NotDetected); Opiate Screen Not Detected (NotDetected); Oxycodone Screen Not Detected (NotDetected); Tricyclic Screen Not Detected (NotDetected)
--- NOTE | 2017-12-15 08:06 | RAD ---
RADIOGRAPH CHEST 1 VIEW: HISTORY: 67-year-old female with dyspnea. FINDINGS: There is no air space density, pulmonary edema, or pneumothorax. The lateral costophrenic angles are sharp. IMPRESSION: No acute pulmonary findings. jn [] POS: [facility]
[2017-12-15] MEDS ORDERED: HYDROcodone/Acetaminophen 5/325 mg Tablet ONE ×2 (08:13→13:55)
--- NOTE | 2017-12-15 08:23 | RAD ---
RADIOGRAPH RIGHT SECOND DIGIT 3 VIEWS: Date: 12/15/17 HISTORY: 67-year-old female with right index finger pain. FINDINGS: There is no fracture or dislocation. No high grade DJD. No radiopaque foreign body. IMPRESSION: Negative. POS: [facility]
[2017-12-15] MEDS ORDERED: Ketorolac Tromethamine 30 MG/ML VIAL ONE (16:27)
[2017-12-15] MEDS ORDERED: Insulin Regular 300 UNITS/3 ML VIAL ONE (16:42)
== END 2017-12-15 17:09 ==
LOC: ERS 04:56
DX: M79.644 Pain in right finger(s) (principal); R45.851 Suicidal ideations; E78.5 Hyperlipidemia, unspecified; E11.9 Type 2 diabetes mellitus without complications; M10.9 Gout, unspecified; F41.9 Anxiety disorder, unspecified; M06.9 Rheumatoid arthritis, unspecified; F17.210 Nicotine dependence, cigarettes, uncomplicated; Z79.4 Long term (current) use of insulin; Z79.899 Other long term (current) drug therapy; Z79.891 Long term (current) use of opiate analgesic; Z79.82 Long term (current) use of aspirin
CPT/HCPCS: 36415; 36416; 71045; 80053; 80306; 80307; 81003; 82550; 84443; 84550; 85025; 93005; J1815; J1885

== ENCOUNTER 2018-01-01 13:05 | Emergency (ER) | payer MEDICARE, OTHER ==
[2018-01-01] MEDS ORDERED: Lorazepam 2 MG/ML VIAL ONE (13:47)
[2018-01-01 13:57] LABS: #Basophils 0.1 thou/uL (0.0-0.2); #Eosinphils 0.1 thou/uL (0.0-0.7); #Lymphocytes 2.7 thou/uL (1.20-3.40); #Monocytes 0.8 thou/uL (0.11-0.59); #Neutrophils 5.1 thou/uL (1.40-6.50); %Basophils 0.6 % (0.0-1.0); %Eosinophils 1.3 % (0.0-10.0); %Lymphocytes 30.9 % (21.0-51.0); %Monocytes 9.2 % (0.0-10.0); %Neutrophils 58.1 % (42.0-75.0); Hemoglobin 11.8 g/dL (12.0-16.0); Mean Corpuscular HGB CONC 33.9 g/dL (32.0-36.0); Mean Corpuscular Hemoglobin 29.4 pg (27.0-31.0); Mean Corpuscular Volume 86.9 fL (78.0-98.0); Mean Platelet Volume 6.4 fL (7.4-10.4); Platelet Count 331 thou/uL (130-400); RBC Distribution Width 13.4 % (11.5-14.5); White Blood Cell (WBC) Count 8.7 thou/uL (4.8-10.8)
[2018-01-01 14:22] LABS: ALT (SGPT) 8 U/L (8-55); AST (SGOT) 12 U/L (5-34); Albumin 3.8 g/dL (3.4-4.8); Alkaline Phosphatase 86 U/L (40-150); Anion Gap 15 mmol/L (10-20); BUN (Urea Nitrogen) 14 mg/dL (9.8-20.1); Bilirubin, Total 0.5 mg/dL (0.2-1.2); Calc. Creatinine Clearance 0 mL/min (70-130); Calcium 9.6 mg/dL (7.8-10.44); Carbon Dioxide 24 mmol/L (23-31); Chloride 104 mmol/L (98-107); Estimated GFR-MDRD Greater than 90; Globulin 3.4 g/dL (2.4-3.5); Glucose 162 mg/dL (80-115); Lipase 6 U/L (8-78); Potassium 4.1 mmol/L (3.5-5.1); Protein, Total 7.2 g/dL (6.0-8.3); Sodium 139 mmol/L (136-145)
--- NOTE | 2018-01-01 14:54 | ULT ---
ULTRASOUND ABDOMEN: Date: 01/01/18 HISTORY: Right flank pain. FINDINGS: There is a 2.3 cm hyperechoic area with dome corresponding to the finding on the CT scan of 08/19/17, consistent with focal fatty infiltration. No intrahepatic ductal dilatation is seen. No gallstones, gallbladder wall thickening, or pericholecystic fluid is identified. The common duct measures 7.0 mm in diameter. The right kidney is unremarkable. No free fluid is seen in Morison's pouch. Pancreas not visualized due to overlying bowel gas. IMPRESSION: No evidence of cholelithiasis. POS: [facility]
--- NOTE | 2018-01-01 15:05 | CT ---
ABDOMEN CT WITHOUT CONTRAST PELVIC CT WITHOUT CONTRAST: Date: 01/01/18 HISTORY: Right flank pain x5 days. COMPARISON: 06/14/16. TECHNIQUE: An AP and pelvic CT are performed without contrast. Coronal reformatted images are submitted for inte rpretation. FINDINGS: ABDOMEN CT: Dependent atelectatic changes in the lung bases. Areas of scarring in the left lung base are noted. H eart size is upper normal. No significant pericardial fluid. The descending thoracic aorta and abdomi nal aorta have a normal caliber. No periaortic fat stranding. Limited evaluation of the solid organs with the lack of IV contrast. There is fatty infiltration of t he liver near the falciform ligament. Grossly, the solid organs are unremarkable. Unremarkable gallbladder. No gastrohepatic, retrocrural, or periportal lymphadenopathy. No mesenteric mass, lymphadenopathy, free air, or free fluid. There is a small ventral abdominal wall hernia containing mesenteric fat. No bowel herniation. Limited evaluation of the alimentary canal by lack of oral contrast. No evidence of small bowel obstr uction. Ileocecal junction is normal. Appendix is not appreciated. Nevertheless, no inflammation of t he cecal apex. Scattered fecal material in a nondistended, nondilated colon. No diverticulitis. Bilaterally, no evidence of obstructive uropathy. There is no evidence of hydronephrosis, nephrolithi asis, or perinephric fat stranding. Bilateral ureters are unremarkable. Unremarkable gallbladder. PELVIC CT: No mass, lymphadenopathy, free air, or free fluid. Hysterectomy changes are noted. Unremarkable urina ry bladder. No lytic or blastic lesions in the osseous structures. IMPRESSION: No evidence of nephrolithiasis or obstructive uropathy. POS: [facility]
[2018-01-01] MEDS ORDERED: Ketorolac Tromethamine 30 MG/ML VIAL ONE (15:14)
[2018-01-01 15:21] LABS: Bilirubin Small (Negative); Blood, Urine Negative (Negative); Clarity CLEAR (Clear); Glucose, Urine (Dipstick) 100 mg/dL (Negative); Leukocyte Negative (Negative); Nitrite Negative (Negative); Protein, Urine (Dipstick) Negative (Neg-Trace); Specific Gravity, Urine 1.032 (1.002-1.036); pH, Urine 6.5 (5.0-9.0)
== END 2018-01-01 17:10 | disposition home or self-care (01) ==
LOC: ERS 13:05
DX: R10.9 Unspecified abdominal pain (principal); F41.9 Anxiety disorder, unspecified; E11.9 Type 2 diabetes mellitus without complications; E03.9 Hypothyroidism, unspecified; M10.9 Gout, unspecified; M06.9 Rheumatoid arthritis, unspecified; F17.210 Nicotine dependence, cigarettes, uncomplicated; E78.5 Hyperlipidemia, unspecified; Z79.82 Long term (current) use of aspirin; Z79.899 Other long term (current) drug therapy; Z79.4 Long term (current) use of insulin
CPT/HCPCS: 36415; 74176; 76705; 80053; 81003; 83690; 85025; 96361; 96374; 96375; J1885; J2060; J2270

== ENCOUNTER 2018-08-16 12:45 | Observation (INO) | payer MEDICARE, OTHER ==
[2018-08-16] MEDS ORDERED: Labetalol HCl 100 MG/20 ML VIAL ONE (13:12)
[2018-08-16] MEDS ORDERED: Aspirin Chewable 81 MG TAB ONE (13:12)
--- NOTE | 2018-08-16 13:15 | RAD ---
FPortable chest radiograph: 08/16/2018 COMPARISON: 12/15/2017 HISTORY:Left-sided chest pain FINDINGS: No pneumothorax or pleural fluid. No focal consolidation or alveolar edema. Heart and media stinal contours are stable. Multilevel degenerative change of the thoracic spine. IMPRESSION: No acute findings.
[2018-08-16 13:42] LABS: #Basophils 0.1 thou/uL (0.0-0.2); #Lymphocytes 1.7 thou/uL (1.20-3.40); #Monocytes 0.6 thou/uL (0.11-0.59); #Neutrophils 6.3 thou/uL (1.40-6.50); %Basophils 0.9 % (0.0-1.0); %Eosinophils 0.5 % (0.0-10.0); %Lymphocytes 19.4 % (21.0-51.0); %Monocytes 7.2 % (0.0-10.0); Hemoglobin 13.1 g/dL (12.0-16.0); Mean Corpuscular HGB CONC 32.1 g/dL (32.0-36.0); Mean Corpuscular Hemoglobin 29.3 pg (27.0-31.0); Mean Corpuscular Volume 91.2 fL (78.0-98.0); Mean Platelet Volume 7.2 fL (7.4-10.4); Platelet Count 303 thou/uL (130-400); RBC Distribution Width 13.6 % (11.5-14.5); Red Blood Cell (RBC) Count 4.48 mill/uL (4.20-5.40); White Blood Cell (WBC) Count 8.8 thou/uL (4.8-10.8)
[2018-08-16 13:56] LABS: ALT (SGPT) 13 U/L (8-55); AST (SGOT) 14 U/L (5-34); Albumin 4.5 g/dL (3.4-4.8); Alkaline Phosphatase 98 U/L (40-150); Anion Gap 20 mmol/L (10-20); BUN (Urea Nitrogen) 13 mg/dL (9.8-20.1); Calc. Creatinine Clearance 0 mL/min (70-130); Carbon Dioxide 19 mmol/L (23-31); Chloride 102 mmol/L (98-107); Estimated GFR-MDRD 81; Globulin 3.2 g/dL (2.4-3.5); Glucose 394 mg/dL (80-115); Lipase Less than 4 U/L (8-78); Potassium 3.3 mmol/L (3.5-5.1); Protein, Total 7.7 g/dL (6.0-8.3); Sodium 138 mmol/L (136-145)
[2018-08-16] MEDS ORDERED: Ondansetron PF 4 MG/2 ML Vial ONE (14:21)
[2018-08-16] MEDS ORDERED: Famotidine 20 MG TAB PO SCH (20:00)
[2018-08-16] MEDS ORDERED: Nitroglycerin 0.4 MG TAB (25 Tab Bottle) PO PRN (20:43)
[2018-08-16] MEDS ORDERED: Dextrose 50% Abboject 50 ML SYRINGE SLOW IVP PRN (20:52)
[2018-08-16] MEDS ORDERED: Dextrose 5% in Water 1,000 ML IV PRN (20:52)
[2018-08-16] MEDS ORDERED: HumaLOG 300 UNITS/3 ML VIAL SC PRN (20:52)
[2018-08-16] MEDS ORDERED: HumuLIN 70/30 (300 UNITS/3 ML VIAL) SC SCH (21:00)
[2018-08-16] MEDS ORDERED: Ezetimibe 10 MG TAB PO SCH (21:00)
[2018-08-16] MEDS ORDERED: Atorvastatin Calcium 20 MG TAB PO SCH (21:00)
--- NOTE | 2018-08-16 21:28 | HP ---
PRIMARY CARE PROVIDER: Dr. Mumtaz Sutton. CHIEF COMPLAINT: Chest pain. HISTORY OF PRESENT ILLNESS: Ms. Araiza is a pleasant 67-year-old lady, who was seen at [facility] on August 16, 2018. She has reportedly stopped taking all her medications except for aspirin and insulin over the last 3 or 4 months. She is having a lot of stress because her is ill. Today, she wanted her to go to the emergency room. An argument ensued and she developed chest pain around 11:00 a.m. She describes it as sharp, over the left side of her chest, radiating to the right, not accompanied by shortness of breath, nausea, or lightheadedness. She denies any fevers or chills. She had cardiac catheterization in February 2015, at which time, she was found to have mild coronary artery disease and normal left ventricular systolic function. She reports having stress test after that study, but does not know the outcome. She does not know when it was. Her chest pain improved after she came to the emergency room, although she appears to have it on and off. She cannot recall any aggravating or relieving factors for the pain. She reports having sensation of pins and needles in her lower extremities, but that has resolved. REVIEW OF SYSTEMS: All other systems reviewed and found to be negative. PAST MEDICAL HISTORY: 1. Lupus. 2. Rheumatoid arthritis. 3. Dyslipidemia. 4. Diabetes mellitus type 2. 5. Hypothyroidism. 6. Gout. PAST SURGICAL HISTORY: 1. section x3. 2. Hysterectomy. 3. Cervical disk fusion. SOCIAL HISTORY: The patient smokes half to one pack of cigarettes a day. She denies alcohol use or recreational drug use. ALLERGIES: NO KNOWN DRUG ALLERGIES. CURRENT MEDICATIONS: 1. Humalog Mix 50 units in the morning and 30 units in the evening. 2. Aspirin 81 mg daily. CODE STATUS: I discussed her code status. She is full code. FAMILY HISTORY: No family history of premature coronary artery disease. PHYSICAL EXAMINATION: GENERAL: On examination, Ms. Araiza is awake and alert. VITAL SIGNS: Blood pressure 107/50, pulse 99, respiratory rate 19, and oxygen saturation 100% on room air. She is afebrile. EYES: No scleral icterus. No conjunctival pallor. ENT: Moist mucosal membranes. No oropharyngeal erythema or exudates. NECK: Supple, nontender. Trachea is midline. RESPIRATORY: Accessory muscles of breathing are not active. Chest wall movements are symmetric bilaterally. Lungs are clear to auscultation without wheeze, rhonchi, or crepitations. CARDIOVASCULAR: S1 and S2 are heard, regular. Peripheral pulses palpable. No carotid bruit. No pericardial rub. ABDOMEN: Soft, nontender. Bowel sounds are heard. NEUROLOGIC: Cranial nerves 2 through 12 intact. No focal motor or sensory deficits. Deep tendon reflexes are 2+. MUSCULOSKELETAL: Power is 5/5 in all 4 extremities. SKIN: No rashes or subcutaneous nodules. LYMPHATIC: No cervical lymphadenopathy. PSYCHIATRIC: Normal mood. Normal affect. The patient is oriented to person, place, and time. LABORATORY AND DIAGNOSTIC DATA: Ms. Araiza's labs and investigations were reviewed. I reviewed her electrocardiogram, which shows sinus tachycardia, no ST changes to suggest an acute coronary syndrome. I also reviewed her chest x-ray, which does not show any pulmonary infiltrates. She has an unremarkable CBC, decreased potassium of 3.3, elevated glucose of 394, unremarkable comprehensive metabolic profile, and troponin-I, that is negative x3. BNP is normal at 31.9. ASSESSMENT AND PLAN: Ms. Araiza is a pleasant 67-year-old lady, who was seen at [facility] on August 16, 2018. Her problem list includes: 1. Chest pain: Her chest pain is atypical for acute coronary syndrome. However , she does have significant risk factors in the form of diabetes mellitus, hypertension, dyslipidemia, and in the context of medication noncompliance. She will be admitted to the hospital for rechecking her troponin, telemetry monitoring, and stress test. Further workup depending on outcome of these tests. 2. Diabetes mellitus type 2: We will continue home medications. Start Accu- Cheks and insulin sliding scale. 3. Dyslipidemia: We will resume statin. 4. Sinus tachycardia: Could be secondary to stress. We will check D-dimer to rule out pulmonary embolism. 5. Hypothyroidism: We will continue Synthroid. Many thanks for allowing me to participate in your patient's care. Please feel free to contact me with any questions or concerns. LEVEL OF RISK: High. LEVEL OF COMPLEXITY: High. Job ID: [id number] [facility]
[2018-08-17 00:15] VITALS: BMI 36.1
[2018-08-17 00:20] LABS: Troponin I 0.025 ng/mL (< 0.028)
[2018-08-17] MEDS ORDERED: Levothyroxine Sodium 50 MCG TAB PO SCH (06:00)
[2018-08-17] MEDS ORDERED: HumuLIN 70/30 (300 UNITS/3 ML VIAL) SC SCH (09:00)
[2018-08-17] MEDS ORDERED: Aspirin 81 mg Enteric Coated Tablet PO SCH (09:00)
[2018-08-17] MEDS ORDERED: Regadenoson 0.4 MG/5 ML SYRINGE ONE (09:15)
[2018-08-17 11:51] VITALS: TEMP 98.1
--- NOTE | 2018-08-17 13:22 | NM ---
[facility] medicine myocardial perfusion scan 08/17/2018 COMPARISON: None HISTORY: Chest pain TECHNIQUE: SPECT imaging of the left ventricular myocardium obtained during rest and stress following the intravenous administration of 10.7 and 30.0 mCi technetium 99m labeled sestamibi respectively FINDINGS: No fixed or reversible defect noted. Left ventricular wall motion appears normal. The EDV i s 60 mL is and ESV is 11 mL. Left ventricular ejection fraction is estimated at 81%, likely falsely e levated on the basis of a low end systolic volume. IMPRESSION: No fixed or reversible defect is seen. Left ventricular wall motion appears normal with a normal ejection fraction.
[2018-08-17 15:46] VITALS: BP 139/62
--- NOTE | 2018-08-17 16:22 | DIS ---
DATE OF ADMISSION: 08/16/2018 DATE OF DISCHARGE: 08/17/2018 PRIMARY CARE PROVIDER: Mumtaz Sutton MD. DISCHARGE DIAGNOSES: 1. Chest pain. 2. Most likely musculoskeletal etiology for chest pain. CONDITION OF PATIENT ON THE DAY OF DISCHARGE: Stable. I assessed Ms. Araiza on the day of discharge. She denies any chest pain or shortness of breath. Vital signs are stable. S1 and S2 are heard, regular. Lungs are clear to auscultation bilaterally. DISCHARGE MEDICATIONS: Ms. Araiza reports that she has medications at home. No change was made to her pre-admission home medications, which include tramadol p.r.n., aspirin 81 mg daily, Zetia 10 mg in the evening, lispro insulin 50 units in the morning and 30 units in the evening, Synthroid 50 mcg daily, and simvastatin 40 mg daily. HOSPITAL COURSE: Ms. Araiza is a pleasant 67-year-old lady, who was admitted to [facility] on August 16, 2018 for chest pain. Please refer to my history and physical note dated August 16, 2018 for further details. Pulmonary embolism was ruled out with a negative D-dimer. She had nuclear stress test, which did not show any fixed or reversible defect. Left ventricular ejection fraction was estimated at 81%, likely falsely elevated on the basis of a low end systolic volume. Left ventricular wall motion appeared normal. She is advised to follow up with her primary care provider in 3 to 5 days' time. She is also advised to stop smoking. Many thanks for allowing me to participate in your patient's care. Please feel free to contact me with any questions or concerns. DISCHARGE DESTINATION: Home Job ID: [id number] [facility]
--- NOTE | 2018-08-21 14:28 | STRESS ---
Acquisition Time: 2018-08-17 10:10:49 Total Exercise Time: 00:01:00 Test Indications: CHEST PAIN Medications: Protocol: LEXISCAN Max HR: 106 BPM 70% of Pred: 151 BPM Max BP: 122/066 mmHG Max Work Load: 1.0 METS RESTING ECG: NORMAL SINUS RHYTHM AT 81 BPM SYMPTOMS: SHORTNESS OF BREATH NORMAL BP RESPONSE ECTOPY: NONE ECG STRESS: NO SIGNIFICANT CHANGES INTERPRETATION: INDETERMINATE ECG/AWAIT NUCLEAR IMAGES FOR DEFINITIVE DIAGNOSIS Confirmed by JOSIAS BERNARD ELLEN ([id number]) on 08/21/2018 2:27:55 PM Referred By: MD Biju SALINAS Confirmed By:FRANCHESKA BERNARD PA-C
== END 2018-08-17 16:40 | disposition home or self-care (01) ==
LOC: ERS 12:45 → 2SW 19:36
PROVIDERS: ADMIT Internal Medicine; ATTEND Internal Medicine
DX: R07.9 Chest pain, unspecified (principal); M06.9 Rheumatoid arthritis, unspecified; E78.5 Hyperlipidemia, unspecified; E11.9 Type 2 diabetes mellitus without complications; E03.9 Hypothyroidism, unspecified; M10.9 Gout, unspecified; I25.10 Atherosclerotic heart disease of native coronary artery without angina pectoris; F17.210 Nicotine dependence, cigarettes, uncomplicated; I10 Essential (primary) hypertension; R00.0 Tachycardia, unspecified; I16.0 Hypertensive urgency; Z91.14 Patient's other noncompliance with medication regimen; Z79.4 Long term (current) use of insulin; Z79.82 Long term (current) use of aspirin; Z79.899 Other long term (current) drug therapy; Z98.1 Arthrodesis status; Z98.890 Other specified postprocedural states
CPT/HCPCS: 71045; 78452; 80053; 82962 ×2; 83690; 83880; 84484 ×2; 85025; 85379; 93005; 93017; 94640; 94760; 96374; 96375; 99285; A9500; G0378 ×2; 36415; 36416; J1815; J2405; J2785; J7620

== ENCOUNTER 2018-12-29 23:13 | Inpatient (IN) | payer MEDICARE, OTHER ==
--- NOTE | 2018-12-29 23:33 | RAD ---
XR Foot Lt 3 View STANDARD INDICATION: Left foot pain and swelling COMPARISON: None. FINDINGS: Bones: No acute fracture or subluxation demonstrated. Joints: There is mild scattered osteoarthrosis of the mid foot and forefoot. There is pes planus defo rmity of the left foot. Lisfranc alignment: Lisfranc alignment appears within normal limits. Soft tissues: There is diffuse soft tissue swelling of the foot, ankle and distal foreleg. IMPRESSION: No acute fracture or subluxation demonstrated. Nonspecific soft tissue swelling of the le ft foot and ankle
[2018-12-30] MEDS ORDERED: Ondansetron ODT 4 MG TAB ONE (01:57)
[2018-12-30] MEDS ORDERED: Dextrose 50% Abboject 50 ML SYRINGE ONE (02:12)
[2018-12-30 02:33] LABS: #Basophils 0.1 thou/uL (0.0-0.2); #Eosinphils 0.3 thou/uL (0.0-0.7); #Lymphocytes 3.3 thou/uL (1.20-3.40); #Monocytes 0.9 thou/uL (0.11-0.59); %Basophils 1.2 % (0.0-1.0); %Eosinophils 3.4 % (0.0-10.0); %Lymphocytes 43.8 % (21.0-51.0); %Monocytes 11.5 % (0.0-10.0); %Neutrophils 40.1 % (42.0-75.0); Hemoglobin 12.1 g/dL (12.0-16.0); Mean Corpuscular HGB CONC 33.3 g/dL (32.0-36.0); Mean Corpuscular Hemoglobin 29.8 pg (27.0-31.0); Mean Corpuscular Volume 89.5 fL (78.0-98.0); Mean Platelet Volume 7.4 fL (7.4-10.4); Platelet Count 277 thou/uL (130-400); RBC Distribution Width 14.1 % (11.5-14.5); Red Blood Cell (RBC) Count 4.07 mill/uL (4.20-5.40); White Blood Cell (WBC) Count 7.4 thou/uL (4.8-10.8)
[2018-12-30 02:51] LABS: ALT (SGPT) 7 U/L (8-55); AST (SGOT) 18 U/L (5-34); Alkaline Phosphatase 95 U/L (40-150); Anion Gap 14 mmol/L (10-20); BUN (Urea Nitrogen) 13 mg/dL (9.8-20.1); Bilirubin, Total 0.3 mg/dL (0.2-1.2); Calc. Creatinine Clearance 0 mL/min (70-130); Calcium 9.7 mg/dL (7.8-10.44); Carbon Dioxide 23 mmol/L (23-31); Chloride 104 mmol/L (98-107); Estimated GFR-MDRD Greater than 90; Potassium 4.1 mmol/L (3.5-5.1); Sodium 137 mmol/L (136-145)
[2018-12-30 03:07] LABS: Glucose 44 mg/dL (80-115)
[2018-12-30] MEDS ORDERED: Vancomycin HCl 1.25 GM in Sodium Chloride 0.9% 250 ML 250 ML IVPB SCH (05:45)
[2018-12-30] MEDS ORDERED: Acetaminophen 325 MG TAB ONE (06:16)
--- NOTE | 2018-12-30 07:50 | ULT ---
PRELIMINARY REPORT/[facility]/EMERGENCY AFTER HOURS PROCEDURE: EXAM: US Duplex Left Lower Extremity Veins, Limited EXAM DATE/TIME: 12/30/2018 2:36 AM CLINICAL HISTORY: 68 years old, female; Edema, localized; Lower extremity, left; Leg, lower and foot; Patient HX: Lle p ain/edema x 1 wk TECHNIQUE: Imaging protocol: Real-time Duplex ultrasound of the Left Lower Extremity with 2-D melvin scale, color Doppler flow and spectral waveform analysis with image documentation. Limited exam focused on the lef t lower extremity veins. COMPARISON: No relevant prior studies available. FINDINGS: Left deep veins: Unremarkable. The common femoral, femoral, proximal profunda femoral and popliteal v eins are patent without thrombus. Normal Doppler waveforms. Normal compressibility and/or augmentatio n response. Left superficial veins: Unremarkable. Saphenofemoral junction is patent without thrombus. Soft tissues: Unremarkable. IMPRESSION: No acute findings. No evidence of deep vein thrombosis. Thank you for allowing us to participate in the care of your patient. Dictated and Authenticated by: Marvin Bae MD 12/30/2018 4:31 AM Central Time ([place] & [place]) FINAL REPORT LEFT LOWER EXTREMITY VENOUS ULTRASOUND WITH DOPPLER: Date: 12/30/18 HISTORY: Swelling. COMPARISON: 10/26/08. TECHNIQUE: Melvin scale, color flow, Doppler imaging, and spectral waveform analysis performed on the left lower e xtremity venous system. FINDINGS: This report is in agreement with the preliminary report by Gissell. No evidence of thrombus in the left lower extremity deep venous system. POS: [facility]
--- NOTE | 2018-12-30 08:39 | RAD ---
PORTABLE CHEST 1 VIEW: DATE: 12/30/2018. TIME: 2:53 a.m. HISTORY: Chest pain. FINDINGS: Comparison is made with the exam of 08/16/2018. The heart size is normal. The lungs are expanded without focal areas of consolidation, pneumothorax, or pleural effusions. There are postop changes in the cervical spine. Degenerative changes are pre sent in the thoracic spine. IMPRESSION: No acute process. POS: OFF
[2018-12-30 10:33] VITALS: BMI 32.9
[2018-12-30] MEDS ORDERED: Acetaminophen 650 MG Suppository PR PRN (10:47)
[2018-12-30] MEDS ORDERED: Senokot S 8.6-50 MG TAB PO PRN (10:47)
[2018-12-30] MEDS: Acetaminophen 325 MG TAB PO PRN (10:58)
[2018-12-30] MEDS ORDERED: traMADol HCl 50 MG TAB PO PRN ×2 (12:10)
[2018-12-30] MEDS ORDERED: Dextrose 50% Abboject 50 ML SYRINGE SLOW IVP PRN (13:35)
[2018-12-30] MEDS ORDERED: Dextrose 5% in Water 1,000 ML IV PRN (13:35)
--- NOTE | 2018-12-30 14:05 | HP ---
PRIMARY CARE PROVIDER: Dr. Mumtaz Sutton. CHIEF COMPLAINT: Left foot pain. HISTORY OF PRESENT ILLNESS: Ms. Araiza is a pleasant 68-year-old lady, who was seen at [facility] on December 30, 2018. She was hospitalized at this facility from August 16 to of this year for chest pain, most likely secondary to musculoskeletal etiology. She reports that over the last 2 to 3 weeks she has had left foot pain. She describes it as dull, radiating into her whitley, worse with walking, no known relieving factors. She denies any fevers or chills. She denies any nausea or vomiting. She denies any diarrhea or abdominal pain. 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 REVIEW OF SYSTEMS: All systems were reviewed and found to be negative except for the pertinent positives mentioned above. PAST MEDICAL HISTORY: Lupus, rheumatoid arthritis, dyslipidemia, diabetes mellitus type 2, hypothyroidism, gout. PAST SURGICAL HISTORY: section x3, hysterectomy, and cervical disk fusion. SOCIAL HISTORY: The patient smokes half a pack of cigarettes a day. She denies alcohol use or recreational drug use. FAMILY HISTORY: No family history of premature coronary artery disease. ALLERGIES: NO KNOWN DRUG ALLERGIES. CODE STATUS: I discussed her code status. She is full code. CURRENT MEDICATIONS: 1. Tramadol 50 mg every 4 hours as needed. 2. Aspirin 81 mg daily. 3. Zetia 10 mg every evening. 4. Lispro insulin 75/25, 50 units in the morning and 30 units in the evening. 5. Synthroid 50 mcg daily. 6. Lyrica 75 mg 2 times a day. 7. Simvastatin 40 mg in the evening. PHYSICAL EXAMINATION: GENERAL: On examination, Ms. Araiza is awake and alert, not in acute distress. VITAL SIGNS: Blood pressure is 103/67, pulse 72, respiratory rate 18, and oxygen saturation 99% on room air. She is afebrile. She is obese, with a BMI of 32.9. EYES: No scleral icterus, no conjunctival pallor. ENT: Moist mucosal membranes. No oropharyngeal erythema or exudates. NECK: Supple, nontender, trachea is midline. RESPIRATORY: Accessory muscles of breathing are not active. Chest wall movements are symmetric bilaterally. Lungs are clear to auscultation without wheeze, rhonchi, or crepitations. CARDIOVASCULAR: S1 and S2 are heard, regular. Peripheral pulses palpable. No carotid bruit. No pericardial rub. ABDOMEN: Soft, nontender, bowel sounds are heard. NEUROLOGIC: Cranial nerves 2 through 12 intact, deep tendon reflexes 2+. MUSCULOSKELETAL: Power is 5/5 in all 4 extremities. SKIN: She has erythema of the left foot, with streaking over the left whitley. There is also elevated temperature over the left foot. LYMPHATIC: No inguinal lymphadenopathy. PSYCHIATRIC: Normal mood, normal affect, the patient is oriented to person, place, and time. LABORATORY DATA: Ms. Araiza's labs and investigations were reviewed. I reviewed her electrocardiogram, which shows normal sinus rhythm, no ST changes to suggest an acute coronary syndrome. I also reviewed her chest x-ray, which does not show any pulmonary infiltrates. She also had foot x-ray, which did not show any acute fracture or subluxation. She had nonspecific soft tissue swelling of the left foot and ankle. She also had lower extremity Doppler on the left side, which did not show any evidence of deep vein thrombosis. She has normal white count, normal hemoglobin, normal platelet count, D-dimer less than 0.27, normal sodium, normal potassium, normal creatinine, decreased glucose of 44, and unremarkable LFTs. Troponin I is normal. ASSESSMENT AND PLAN: Ms. Araiza is a pleasant 68-year-old lady, who was seen at [facility] on December 30, 2018. Her problem list includes : 1. Cellulitis: Ms. Araiza is presenting with diabetic foot infection of the left leg in the form of cellulitis. She will be admitted to the hospital for further management. She has received vancomycin in the emergency room, which I will continue. 2. Diabetes mellitus type 2: She was hypoglycemic in the emergency room. We will start Accu-Cheks and insulin sliding scale. We will resume home insulin if blood sugars are stable. 3. Dyslipidemia: We will continue Zetia and simvastatin. 4. Hypothyroidism: Continue Synthroid. 5. Gout: Stable. Many thanks for allowing me to participate in your patient's care. Please feel free to contact me with any questions or concerns. LEVEL OF RISK: High. LEVEL OF COMPLEXITY: High. Job ID: [id number] [facility]
[2018-12-30] MEDS: HumaLOG 300 UNITS/3 ML VIAL SC PRN ×2 (14:16→16:23)
[2018-12-30] MEDS: Nicotine 14 MG PATCH TD SCH (14:20)
[2018-12-30] MEDS: Vancomycin HCl 1.25 GM in Sodium Chloride 0.9% 250 ML 250 ML IVPB SCH (16:15)
[2018-12-30] MEDS: Atorvastatin Calcium 20 MG TAB PO SCH (20:51)
[2018-12-30] MEDS: Pregabalin 75 MG CAP PO SCH (20:51)
[2018-12-30] MEDS: Ezetimibe 10 MG TAB PO SCH (20:51)
[2018-12-30] MEDS ORDERED: Simvastatin 40 MG TAB PO SCH (21:00)
[2018-12-30] MEDS ORDERED: Ezetimibe 10 MG TAB PO SCH (21:00)
[2018-12-31 05:34] LABS: #Eosinphils 0.2 thou/uL (0.0-0.7); #Lymphocytes 1.9 thou/uL (1.20-3.40); #Monocytes 0.5 thou/uL (0.11-0.59); #Neutrophils 2.1 thou/uL (1.40-6.50); %Basophils 0.1 % (0.0-1.0); %Eosinophils 4.1 % (0.0-10.0); %Lymphocytes 40.1 % (21.0-51.0); %Monocytes 11.1 % (0.0-10.0); %Neutrophils 44.5 % (42.0-75.0); Hemoglobin 12.1 g/dL (12.0-16.0); Mean Corpuscular HGB CONC 32.9 g/dL (32.0-36.0); Mean Corpuscular Hemoglobin 29.5 pg (27.0-31.0); Mean Corpuscular Volume 89.6 fL (78.0-98.0); Mean Platelet Volume 7.4 fL (7.4-10.4); Platelet Count 252 thou/uL (130-400); White Blood Cell (WBC) Count 4.8 thou/uL (4.8-10.8)
[2018-12-31 05:55] LABS: Anion Gap 12 mmol/L (10-20); BUN (Urea Nitrogen) 10 mg/dL (9.8-20.1); Calc. Creatinine Clearance 102 mL/min (70-130); Calcium 8.9 mg/dL (7.8-10.44); Carbon Dioxide 22 mmol/L (23-31); Chloride 102 mmol/L (98-107); Estimated GFR-MDRD Greater than 90; Glucose 296 mg/dL (80-115); Sodium 132 mmol/L (136-145)
[2018-12-31] MEDS: Vancomycin HCl 1.25 GM in Sodium Chloride 0.9% 250 ML 250 ML IVPB SCH (06:06)
[2018-12-31] MEDS: Levothyroxine Sodium 50 MCG TAB PO SCH (06:07)
[2018-12-31] MEDS: HumaLOG 300 UNITS/3 ML VIAL SC PRN ×3 (06:07→20:40)
[2018-12-31] MEDS ORDERED: traMADol HCl 50 MG TAB PO PRN (07:44)
[2018-12-31] MEDS: Pregabalin 75 MG CAP PO SCH ×2 (08:52→20:39)
[2018-12-31] MEDS: Enoxaparin Sodium 40 MG/0.4 ML SYRINGE SC SCH (08:52)
[2018-12-31] MEDS: Aspirin 81 mg Enteric Coated Tablet PO SCH (08:52)
[2018-12-31] MEDS ORDERED: Levothyroxine Sodium 75 MCG TAB PO SCH (09:00)
[2018-12-31] MEDS ORDERED: Prevnar 13-Val Conj/PF 0.5 ML SYRINGE IM ONE (09:00)
[2018-12-31] MEDS ORDERED: HumuLIN 70/30 (300 UNITS/3 ML VIAL) SC SCH ×2 (09:00→21:00)
[2018-12-31] MEDS: Nicotine 14 MG PATCH TD SCH (11:16)
--- NOTE | 2018-12-31 13:27 | PDOC.HOSPP ---
- Subjective Encounter Date: 12/31/18 Encounter Time: 08:00 Subjective: is ambulating with walking program still has pain in left leg - Objective Vital Signs & Weight: Vital Signs (12 hours) Temp Pulse Resp BP Pulse Ox 12/31/18 11:00 98.0 F 73 18 116/73 98 12/31/18 09:05 98 12/31/18 07:36 98.0 F 77 18 104/67 98 12/31/18 04:00 98.1 F 70 18 125/73 97 Weight Weight 180 lb 1.883 oz I&O: 12/30/18 12/31/18 01/01/19 06:59 06:59 06:59 Intake Total 300 Balance 300 Result Diagrams: 12/31/18 05:23 12/31/18 05:23 Additional Labs: Accuchecks 12/31/18 12/31/18 12/30/18 11:16 04:06 20:54 POC Glucose 105 290 H 161 H 12/30/18 16:25 POC Glucose 189 H ROS - Medication Medications: Active Medications Generic Name Dose Route Start Last Admin Trade Name Freq PRN Reason Stop Dose Admin Acetaminophen 650 mg 12/30/18 10:47 12/30/18 10:58 Tylenol PO 650 mg Q4H PRN Administration Headache/Fever/Mild Pain (1-3) Aspirin 81 mg 12/31/18 09:00 12/31/18 08:52 Ecotrin PO 81 mg DAILY ZIA Administration Atorvastatin Calcium 20 mg 12/30/18 21:00 12/30/18 20:51 Lipitor PO 20 mg HS ZIA Administration Ezetimibe 10 mg 12/30/18 21:00 12/30/18 20:51 Zetia PO 10 mg QPM ZIA Administration Enoxaparin Sodium 40 mg 12/31/18 09:00 12/31/18 08:52 Lovenox SC 40 mg 0900 ZIA Administration Vancomycin HCl 1.25 gm/ Sodium 250 mls @ 250 mls/hr 12/30/18 18:00 12/31/18 06:06 Chloride IVPB 250 mls 0600,1800 ZIA Administration Insulin Human Isoph/Insulin Regular 20 units 12/31/18 09:00 12/31/18 08:55 Humulin 70/30 SC 20 unit DAILY ZIA Administration Insulin Human Lispro 0 units 12/30/18 13:35 12/31/18 06:07 Humalog SC 4 unit .MILD SLIDING SCALE PRN Administration Mild Correctional Scale Levothyroxine Sodium 50 mcg 12/31/18 06:00 12/31/18 06:07 Synthroid PO 50 mcg 0600 ZIA Administration Nicotine 14 mg 12/30/18 11:00 12/31/18 11:16 Nicoderm Patch TD Not Given Q24HR ZIA Pregabalin 75 mg 12/30/18 21:00 12/31/18 08:52 Lyrica PO 75 mg BID ZIA Administration Sodium Chloride 10 ml 12/30/18 21:00 12/31/18 08:56 Flush - Normal Saline IVF 10 ml Q12HR ZIA Administration Tramadol HCl 100 mg 12/30/18 12:10 12/30/18 14:14 Ultram PO 100 mg Q6H PRN Administration Severe Pain (7-10) - Exam NAD, awake alert Eye: PERRL, anicteric sclera ENT: no oropharyngeal lesions, moist mucosa Neck: supple, no JVD Heart: RRR, no murmur Respiratory: no wheezes, no rales Gastrointestinal: soft, non-tender, normal bowel sounds Extremities: no edema Extremeties - other findings: mild erythema to left leg Neurological: CN's grossly intact, no focal deficits Psychiatric: normal affect, A&O x 3 Hosp A/P (1) Left leg cellulitis Code(s): L03.116 - CELLULITIS OF LEFT LOWER LIMB Status: Acute (2) DM type 2 (diabetes mellitus, type 2) Status: Chronic Qualifiers: 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
[2018-12-31] MEDS: Vancomycin HCl 1.5 GM in Sodium Chloride 0.9% 250 ML 300 ML IVPB SCH (18:24)
[2018-12-31] MEDS ORDERED: Vancomycin HCl 1.5 GM in Sodium Chloride 0.9% 250 ML 300 ML IVPB SCH (18:30)
[2018-12-31] MEDS: Ezetimibe 10 MG TAB PO SCH (20:39)
[2018-12-31] MEDS: Atorvastatin Calcium 20 MG TAB PO SCH (20:39)
[2019-01-01] MEDS: Levothyroxine Sodium 50 MCG TAB PO SCH (05:31)
[2019-01-01] MEDS: Vancomycin HCl 1.5 GM in Sodium Chloride 0.9% 250 ML 300 ML IVPB SCH ×2 (05:32→17:20)
[2019-01-01 06:18] LABS: #Eosinphils 0.2 thou/uL (0.0-0.7); #Lymphocytes 1.9 thou/uL (1.20-3.40); #Monocytes 0.8 thou/uL (0.11-0.59); #Neutrophils 2.6 thou/uL (1.40-6.50); %Basophils 0.8 % (0.0-1.0); %Eosinophils 4.2 % (0.0-10.0); %Lymphocytes 34.5 % (21.0-51.0); %Monocytes 13.6 % (0.0-10.0); %Neutrophils 46.9 % (42.0-75.0); Hemoglobin 12.2 g/dL (12.0-16.0); Mean Corpuscular HGB CONC 32.1 g/dL (32.0-36.0); Mean Corpuscular Hemoglobin 28.6 pg (27.0-31.0); Mean Corpuscular Volume 89.1 fL (78.0-98.0); Mean Platelet Volume 7.2 fL (7.4-10.4); Platelet Count 283 thou/uL (130-400); RBC Distribution Width 13.9 % (11.5-14.5); Red Blood Cell (RBC) Count 4.27 mill/uL (4.20-5.40); White Blood Cell (WBC) Count 5.6 thou/uL (4.8-10.8)
[2019-01-01 06:34] LABS: Anion Gap 10 mmol/L (10-20); BUN (Urea Nitrogen) 10 mg/dL (9.8-20.1); Calc. Creatinine Clearance 114 mL/min (70-130); Calcium 9.7 mg/dL (7.8-10.44); Carbon Dioxide 28 mmol/L (23-31); Chloride 105 mmol/L (98-107); Estimated GFR-MDRD Greater than 90; Glucose 84 mg/dL (80-115); Potassium 4.2 mmol/L (3.5-5.1); Sodium 139 mmol/L (136-145)
[2019-01-01] MEDS: Pregabalin 75 MG CAP PO SCH ×2 (08:45→20:44)
[2019-01-01] MEDS: Aspirin 81 mg Enteric Coated Tablet PO SCH (08:45)
[2019-01-01] MEDS: Enoxaparin Sodium 40 MG/0.4 ML SYRINGE SC SCH (08:46)
[2019-01-01] MEDS ORDERED: HumuLIN 70/30 (300 UNITS/3 ML VIAL) SC SCH ×2 (09:00→21:00)
[2019-01-01] MEDS: Nicotine 14 MG PATCH TD SCH (12:00)
[2019-01-01] MEDS: HumaLOG 300 UNITS/3 ML VIAL SC PRN ×2 (12:04→17:20)
--- NOTE | 2019-01-01 12:21 | PDOC.HOSPP ---
- Subjective Encounter Date: 01/01/19 Encounter Time: 10:30 Subjective: has off and on nausea, last bm yesterday still has pain in left foot when she ambulates but better than on admission - Objective Vital Signs & Weight: Vital Signs (12 hours) Temp Pulse Resp BP BP Pulse Ox 01/01/19 11:00 98.1 F 86 18 116/71 116/71 99 01/01/19 07:27 98.2 F 69 18 120/75 99 Weight Weight 180 lb 1.883 oz I&O: 12/31/18 01/01/19 01/02/19 06:59 06:59 06:59 Intake Total 300 Balance 300 Result Diagrams: 01/01/19 06:01 01/01/19 06:01 Additional Labs: Accuchecks 01/01/19 01/01/19 01/01/19 11:31 06:28 05:09 POC Glucose 324 H 101 61 L 12/31/18 12/31/18 12/31/18 23:35 22:59 19:29 POC Glucose 139 H 40 L* 272 H 12/31/18 16:40 POC Glucose 291 H ROS - Medication Medications: Active Medications Generic Name Dose Route Start Last Admin Trade Name Freq PRN Reason Stop Dose Admin Acetaminophen 650 mg 12/30/18 10:47 12/30/18 10:58 Tylenol PO 650 mg Q4H PRN Administration Headache/Fever/Mild Pain (1-3) Aspirin 81 mg 12/31/18 09:00 01/01/19 08:45 Ecotrin PO 81 mg DAILY ZIA Administration Atorvastatin Calcium 20 mg 12/30/18 21:00 12/31/18 20:39 Lipitor PO 20 mg HS ZIA Administration Ezetimibe 10 mg 12/30/18 21:00 12/31/18 20:39 Zetia PO 10 mg QPM ZIA Administration Enoxaparin Sodium 40 mg 12/31/18 09:00 01/01/19 08:46 Lovenox SC 40 mg 0900 ZIA Administration Vancomycin HCl 1.5 gm/ Sodium 300 mls @ 200 mls/hr 12/31/18 18:00 01/01/19 05 :32 Chloride IVPB 300 mls 0600,1800 ZIA Administration Insulin Human Isoph/Insulin Regular 5 units 01/01/19 09:00 01/01/19 12:03 Humulin 70/30 SC 5 unit DAILY ZIA Administration Insulin Human Lispro 0 units 12/30/18 13:35 01/01/19 12:04 Humalog SC 5 unit .MILD SLIDING SCALE PRN Administration Mild Correctional Scale Levothyroxine Sodium 50 mcg 12/31/18 06:00 01/01/19 05:31 Synthroid PO 50 mcg 0600 ZIA Administration Nicotine 14 mg 12/30/18 11:00 01/01/19 12:00 Nicoderm Patch TD Not Given Q24HR ZIA Pregabalin 75 mg 12/30/18 21:00 01/01/19 08:45 Lyrica PO 75 mg BID ZIA Administration Sodium Chloride 10 ml 12/30/18 21:00 01/01/19 08:46 Flush - Normal Saline IVF 10 ml Q12HR ZIA Administration Sodium Chloride 10 ml 12/30/18 10:13 12/31/18 18:19 Flush - Normal Saline IVF 10 ml PRN PRN Administration Saline Flush Tramadol HCl 100 mg 12/30/18 12:10 12/30/18 14:14 Ultram PO 100 mg Q6H PRN Administration Severe Pain (7-10) - Exam NAD, awake alert Eye: PERRL, anicteric sclera ENT: no oropharyngeal lesions, moist mucosa Neck: supple, no JVD Heart: RRR, no murmur Respiratory: no wheezes, no rales Gastrointestinal: soft, non-tender, normal bowel sounds Extremeties - other findings: left foot mild edema and tenderness non specific areas Neurological: CN's grossly intact, no focal deficits Psychiatric: normal affect, A&O x 3 Hosp A/P (1) Left leg cellulitis Code(s): L03.116 - CELLULITIS OF LEFT LOWER LIMB Status: Acute (2) DM type 2 (diabetes mellitus, type 2) Status: Chronic Qualifiers: 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 (3) Hyperlipidemia Code(s): E78.5 - HYPERLIPIDEMIA, UNSPECIFIED Status: Chronic Qualifiers: Hyperlipidemia type: unspecified Qualified Code(s): E78.5 - Hyperlipidemia , unspecified (4) Hypothyroidism Code(s): E03.9 - HYPOTHYROIDISM, UNSPECIFIED Status: Chronic Qualifiers: Hypothyroidism type: unspecified Qualified Code(s): E03.9 - Hypothyroidism , unspecified (5) Obesity (BMI 30-39.9) Code(s): E66.9 - OBESITY, UNSPECIFIED Status: Chronic - Plan is on vancomycin continue lispro at lower dose bid, dm is labile (40's to 360's) asp, lipitor, zetia, synthroid and lyrica hemostable ambulate as tolerated will need another 1-2 days of antibiotics follows up with , last stress test was 6 months back -ve.
[2019-01-01] MEDS: Atorvastatin Calcium 20 MG TAB PO SCH (20:44)
[2019-01-01] MEDS: Ezetimibe 10 MG TAB PO SCH (20:44)
[2019-01-02] MEDS: Levothyroxine Sodium 50 MCG TAB PO SCH (05:40)
[2019-01-02] MEDS: Acetaminophen 325 MG TAB PO PRN (05:40)
[2019-01-02] MEDS: Vancomycin HCl 1.5 GM in Sodium Chloride 0.9% 250 ML 300 ML IVPB SCH ×2 (05:41→17:23)
[2019-01-02] MEDS: HumaLOG 300 UNITS/3 ML VIAL SC PRN ×3 (05:41→17:19)
[2019-01-02 06:28] LABS: Band 1 % (5-11); Eosinophils 2 % (0-10); Lymphocytes 37 % (21-51); MDiff Complete? YES; Mean Corpuscular HGB CONC 32.3 g/dL (32.0-36.0); Mean Corpuscular Hemoglobin 28.9 pg (27.0-31.0); Mean Corpuscular Volume 89.5 fL (78.0-98.0); Mean Platelet Volume 7.5 fL (7.4-10.4); Monocytes 12 % (0-10); Neutrophil 48 % (42-75); Platelet Count 252 thou/uL (130-400); Platelet Morphology Comment Appears Adequate; RBC Distribution Width 13.8 % (11.5-14.5); Red Blood Cell (RBC) Count 4.16 mill/uL (4.20-5.40)
[2019-01-02 06:31] LABS: Anion Gap 15 mmol/L (10-20); BUN (Urea Nitrogen) 11 mg/dL (9.8-20.1); Calc. Creatinine Clearance 99 mL/min (70-130); Calcium 9.2 mg/dL (7.8-10.44); Carbon Dioxide 21 mmol/L (23-31); Chloride 101 mmol/L (98-107); Estimated GFR-MDRD Greater than 90; Glucose 363 mg/dL (80-115); Potassium 4.1 mmol/L (3.5-5.1); Sodium 133 mmol/L (136-145)
[2019-01-02] MEDS: Pregabalin 75 MG CAP PO SCH ×2 (08:15→20:28)
[2019-01-02] MEDS: Enoxaparin Sodium 40 MG/0.4 ML SYRINGE SC SCH (08:16)
[2019-01-02] MEDS: Aspirin 81 mg Enteric Coated Tablet PO SCH (08:16)
[2019-01-02] MEDS: HumuLIN 70/30 (300 UNITS/3 ML VIAL) SC SCH (08:17)
[2019-01-02] MEDS: Nicotine 14 MG PATCH TD SCH (10:18)
--- NOTE | 2019-01-02 10:54 | PDOC.HOSPP ---
- Subjective Encounter Date: 01/02/19 Encounter Time: 08:00 Subjective: left ankle and foot pain is better is amb better now - Objective Vital Signs & Weight: Vital Signs (12 hours) Temp Pulse Resp BP BP Pulse Ox 01/02/19 08:14 100 01/02/19 08:04 98.2 F 87 18 121/76 100 01/02/19 04:00 98.3 F 80 18 127/74 99 Weight Weight 180 lb 1.883 oz I&O: 01/01/19 01/02/19 01/03/19 06:59 06:59 06:59 Intake Total 1480 Balance 1480 Result Diagrams: 01/02/19 05:33 01/02/19 05:33 Additional Labs: Accuchecks 01/02/19 01/01/19 01/01/19 04:37 19:06 16:29 POC Glucose 383 H 209 H 245 H 01/01/19 11:31 POC Glucose 324 H ROS - Medication Medications: Active Medications Generic Name Dose Route Start Last Admin Trade Name Freq PRN Reason Stop Dose Admin Acetaminophen 650 mg 12/30/18 10:47 01/02/19 05:40 Tylenol PO 650 mg Q4H PRN Administration Headache/Fever/Mild Pain (1-3) Aspirin 81 mg 12/31/18 09:00 01/02/19 08:16 Ecotrin PO 81 mg DAILY ZIA Administration Atorvastatin Calcium 20 mg 12/30/18 21:00 01/01/19 20:44 Lipitor PO 20 mg HS ZIA Administration Ezetimibe 10 mg 12/30/18 21:00 01/01/19 20:44 Zetia PO 10 mg QPM ZIA Administration Enoxaparin Sodium 40 mg 12/31/18 09:00 01/02/19 08:16 Lovenox SC 40 mg 0900 ZIA Administration Vancomycin HCl 1.5 gm/ Sodium 300 mls @ 200 mls/hr 12/31/18 18:00 01/02/19 05 :41 Chloride IVPB 300 mls 0600,1800 ZIA Administration Insulin Human Isoph/Insulin Regular 10 units 01/02/19 09:00 01/02/19 08:17 Humulin 70/30 SC 10 unit DAILY ZIA Administration Insulin Human Lispro 0 units 12/30/18 13:35 01/02/19 05:41 Humalog SC 6 unit .MILD SLIDING SCALE PRN Administration Mild Correctional Scale Levothyroxine Sodium 50 mcg 12/31/18 06:00 01/02/19 05:40 Synthroid PO 50 mcg 0600 ZIA Administration Nicotine 14 mg 12/30/18 11:00 01/02/19 10:18 Nicoderm Patch TD Not Given Q24HR ZIA Pregabalin 75 mg 12/30/18 21:00 01/02/19 08:15 Lyrica PO 75 mg BID ZIA Administration Sodium Chloride 10 ml 12/30/18 21:00 01/02/19 08:16 Flush - Normal Saline IVF 10 ml Q12HR ZIA Administration Sodium Chloride 10 ml 12/30/18 10:13 12/31/18 18:19 Flush - Normal Saline IVF 10 ml PRN PRN Administration Saline Flush Tramadol HCl 100 mg 12/30/18 12:10 12/30/18 14:14 Ultram PO 100 mg Q6H PRN Administration Severe Pain (7-10) - Exam NAD, awake alert Eye: PERRL, anicteric sclera ENT: no oropharyngeal lesions, moist mucosa Neck: supple, no JVD Heart: RRR, no murmur Respiratory: no wheezes, no rales Gastrointestinal: soft, non-tender, normal bowel sounds Extremeties - other findings: left ankle edema is better, tender+ Neurological: CN's grossly intact, no focal deficits Psychiatric: normal affect, A&O x 3 Hosp A/P (1) Left leg cellulitis Code(s): L03.116 - CELLULITIS OF LEFT LOWER LIMB Status: Acute (2) DM type 2 (diabetes mellitus, type 2) Status: Chronic Qualifiers: Diabetes mellitus regional intermodal truck driver insulin use: with regional intermodal truck driver use (3) Hyperlipidemia Code(s): E78.5 - HYPERLIPIDEMIA, UNSPECIFIED Status: Chronic Qualifiers: Hyperlipidemia type: unspecified Qualified Code(s): E78.5 - Hyperlipidemia , unspecified (4) Hypothyroidism Code(s): E03.9 - HYPOTHYROIDISM, UNSPECIFIED Status: Chronic Qualifiers: Hypothyroidism type: unspecified Qualified Code(s): E03.9 - Hypothyroidism , unspecified (5) Obesity (BMI 30-39.9) Code(s): E66.9 - OBESITY, UNSPECIFIED Status: Chronic - Plan is on vancomycin continue lispro at lower dose bid, dm is labile asp, lipitor, zetia, synthroid and lyrica hemostable ambulate as tolerated dc plan in am on oral keflex x 9 days follows up with , last stress test was 6 months back -ve.
[2019-01-02] MEDS: Ezetimibe 10 MG TAB PO SCH (20:28)
[2019-01-02] MEDS: Atorvastatin Calcium 20 MG TAB PO SCH (20:28)
[2019-01-02] MEDS ORDERED: HumuLIN 70/30 (300 UNITS/3 ML VIAL) SC SCH (21:00)
[2019-01-03] MEDS: Levothyroxine Sodium 50 MCG TAB PO SCH (05:59)
[2019-01-03] MEDS: Vancomycin HCl 1.5 GM in Sodium Chloride 0.9% 250 ML 300 ML IVPB SCH (06:01)
[2019-01-03] MEDS: Pregabalin 75 MG CAP PO SCH (08:12)
[2019-01-03] MEDS: Aspirin 81 mg Enteric Coated Tablet PO SCH (08:13)
[2019-01-03] MEDS: Enoxaparin Sodium 40 MG/0.4 ML SYRINGE SC SCH (08:13)
[2019-01-03] MEDS: HumuLIN 70/30 (300 UNITS/3 ML VIAL) SC SCH (09:21)
[2019-01-03] MEDS: Nicotine 14 MG PATCH TD SCH (11:31)
[2019-01-03] MEDS: HumaLOG 300 UNITS/3 ML VIAL SC PRN (11:33)
[2019-01-03 12:27] VITALS: BP 129/79; TEMP 98.3
--- NOTE | 2019-01-03 14:42 | EKG ---
Test Reason : Blood Pressure : / mmHG Vent. Rate : 074 BPM Atrial Rate : 074 BPM P-R Int : 128 ms QRS Dur : 066 ms QT Int : 420 ms P-R-T Axes : 049 009 030 degrees QTc Int : 466 ms Normal sinus rhythm Low voltage QRS Borderline ECG Confirmed by CHELA ENG M.D. ([id number]), editorial director DINESH HOLDER ([id number]) on 01/03/2019 2:41:51 PM Referred By: Confirmed By:CHELA ENG M.D.
--- NOTE | 2019-01-03 16:08 | DIS ---
DATE OF ADMISSION: 12/30/2018 DATE OF DISCHARGE: 01/03/2019 DISCHARGE DISPOSITION: Home. PRIMARY DISCHARGE DIAGNOSIS: Left foot cellulitis, resolving. SECONDARY DISCHARGE DIAGNOSES: Diabetes mellitus type 2, dyslipidemia, hypothyroidism, and obesity. PROCEDURES DONE DURING HOSPITALIZATION: Chest x-ray done showed no acute process. Left lower extremity ultrasound venous Doppler done showed no evidence of DVT. Left foot three-view standard x-ray done showed no acute fracture or subluxation. Nonspecific soft tissue swelling of the left foot and ankle was seen. H and H 12 and 37, platelet count 252, white count of 5 with 48% neutrophils. BUN 11 and creatinine 0.6. DISCHARGE MEDICATIONS: 1. Aspirin 81 mg p.o. daily. 2. Zetia 10 mg p.o. every evening. 3. Synthroid 50 mcg p.o. daily. 4. Lyrica 75 mg p.o. twice daily. 5. Simvastatin 40 mg p.o. every evening. 6. Ultram p.r.n. for pain. 7. Keflex 500 mg p.o. three times daily for 10 days. 8. Insulin lispro 75/25, 10 units subcu twice daily. ALLERGIES: NO KNOWN DRUG ALLERGIES. DISCHARGE PLAN: The patient to follow up with primary care physician in 1 week. BRIEF COURSE DURING HOSPITALIZATION: The patient initially got admitted on the with complaints of left foot pain and swelling. She was admitted for left lower extremity cellulitis involving foot and ankle. She was placed on vancomycin. The patient's diabetes was very labile all through her stay, which is stabilizing in the last 24 hours on 10 units subcu lispro 75/25 twice daily. Her edema and erythema of the left foot and ankle is receding. She is hemodynamically stable. The patient is ambulating and is wanting to go home today. Please note, I have seen and examined the patient on the day of discharge. She is advised to come to the ER if she were to develop worsening of pain and swelling or fever. Job ID: [id number] [facility]
== END 2019-01-03 13:05 | disposition home or self-care (01) | DRG 638 ==
LOC: ERS 23:13 → ERHOLD 12-30 07:10 → T4-A 12-30 07:26
PROVIDERS: ADMIT Hospitalist; ATTEND Hospitalist
DX: E11.628 Type 2 diabetes mellitus with other skin complications (principal); L03.116 Cellulitis of left lower limb; E78.5 Hyperlipidemia, unspecified; F17.210 Nicotine dependence, cigarettes, uncomplicated; M06.9 Rheumatoid arthritis, unspecified; E66.9 Obesity, unspecified; E03.9 Hypothyroidism, unspecified; M10.9 Gout, unspecified; Z90.710 Acquired absence of both cervix and uterus; Z98.1 Arthrodesis status; Z79.82 Long term (current) use of aspirin; Z79.4 Long term (current) use of insulin; Z68.32 Body mass index [BMI] 32.0-32.9, adult
CPT/HCPCS: 36415; 36416; 71045; 80048; 80053; 80202; 84484; 85025; 85379; 90471; 90670; 93005; 96365; 96375; G0009; J1650; J1815; J3370; J7050; Q0162

== ENCOUNTER 2019-02-03 17:28 | Observation (INO) | payer MEDICARE, OTHER ==
[~2019-02-03 17:28] MED LIST: ISOVUE-370 76%-LOCM 1 ML ONE
--- NOTE | 2019-02-03 17:56 | RAD ---
SINGLE VIEW OF THE CHEST: 01/30/19 COMPARISON: 12/30/18. HISTORY: Chest tightness for two to three hours and chest pain. FINDINGS: Single view of the chest shows a normal sized cardiomediastinal silhouette. There is no evidence of c onsolidation, mass, or pleural effusion. Degenerative changes and postsurgical changes are seen in th e spine. IMPRESSION: No evidence of acute cardiopulmonary disease. POS: [facility]
[2019-02-03 18:07] LABS: #Basophils 0.1 thou/uL (0.0-0.2); #Eosinphils 0.3 thou/uL (0.0-0.7); #Monocytes 0.7 thou/uL (0.11-0.59); #Neutrophils 4.9 thou/uL (1.40-6.50); %Basophils 0.8 % (0.0-1.0); %Eosinophils 3.2 % (0.0-10.0); %Lymphocytes 33.4 % (21.0-51.0); %Neutrophils 54.6 % (42.0-75.0); Mean Corpuscular HGB CONC 33.4 g/dL (32.0-36.0); Mean Corpuscular Hemoglobin 29.8 pg (27.0-31.0); Mean Corpuscular Volume 89.4 fL (78.0-98.0); Platelet Count 307 thou/uL (130-400); RBC Distribution Width 14.1 % (11.5-14.5); Red Blood Cell (RBC) Count 4.36 mill/uL (4.20-5.40); White Blood Cell (WBC) Count 8.9 thou/uL (4.8-10.8)
[2019-02-03 18:26] LABS: ALT (SGPT) 14 U/L (8-55); AST (SGOT) 18 U/L (5-34); Albumin 4.4 g/dL (3.4-4.8); Alkaline Phosphatase 89 U/L (40-110); Anion Gap 15 mmol/L (10-20); BUN (Urea Nitrogen) 12 mg/dL (9.8-20.1); Bilirubin, Total 0.8 mg/dL (0.2-1.2); CK (CPK) 312 U/L (29-168); Calc. Creatinine Clearance 0 mL/min (70-130); Calcium 10.2 mg/dL (7.8-10.44); Carbon Dioxide 21 mmol/L (23-31); Chloride 104 mmol/L (98-107); Estimated GFR-MDRD Greater than 90; Globulin 3.1 g/dL (2.4-3.5); Glucose 136 mg/dL (80-115); Potassium 3.4 mmol/L (3.5-5.1); Protein, Total 7.5 g/dL (6.0-8.3); Sodium 137 mmol/L (136-145)
[2019-02-03] MEDS ORDERED: Aspirin Chewable 81 MG TAB ONE (19:05)
[2019-02-03] MEDS ORDERED: Ketorolac Tromethamine 30 MG/ML VIAL ONE (19:34)
[2019-02-03] MEDS ORDERED: Dextrose 50% Abboject 50 ML SYRINGE ONE (20:14)
[2019-02-03 20:26] VITALS: BMI 31.4
[2019-02-03] MEDS ORDERED: Sodium Chloride 0.9% 250 ML IV SCH (20:30)
[2019-02-03] MEDS ORDERED: Sodium Chloride 0.9% 1,000 ML IV SCH (20:30)
[2019-02-03] MEDS ORDERED: Ondansetron ODT 4 MG TAB PO PRN (20:31)
[2019-02-03] MEDS ORDERED: Ondansetron PF 4 MG/2 ML Vial IVP PRN (20:31)
[2019-02-03] MEDS ORDERED: traMADol HCl 50 MG TAB PO PRN (20:33)
[2019-02-03] MEDS ORDERED: Nitroglycerin 0.4 MG TAB (25 Tab Bottle) SL PRN (20:39)
[2019-02-03] MEDS ORDERED: Potassium Chloride 20 MEQ in Premix Bag 1 BAG IVPB SCH (20:45)
--- NOTE | 2019-02-03 20:51 | PDOC.HHP ---
Hospitalist HPI - History of Present Illness chest pain History of Present Illness: Ms. Araiza is a 68 yo woman presenting with chest pain since earlier this morning which she feels is due to her anxiety. She states the pain was a 6 or 7 out of 10 this morning, pressure in the left side of her chest. Reports the pain has worsened throughout the day. She is a poor historian and has difficulty describing her pain. States she feels that her pain is dull in nature on the left chest but then has waves of sharp pain from left to the right. The pain sometimes radiating to her left shoulder. She reports having nausea and dry heaving earlier today. No vomiting. States she felt well in herself yesterday. Denies any recent cough or hemoptysis. Has been driving a lot recently due to seeing her who is in [place]. The further she has driven is [place]. Reports having episodes of pain like this before with normal investigations. Per previous records she had a normal stress test in August 2018. Noncompliant with medications as of recently due to taking care of her . ED Course: EKG done showing normal sinus. CXR unremarkable. She was given 324 mg of aspirin as well as Toradol. Per patient, her pain has not eased with medications given. Hospitalist ROS - Review of Systems Constitutional: denies: fever, chills, sweats, weakness, malaise, other Eyes: denies: pain, vision change, conjunctivae inflammation, eyelid inflammation, redness, other ENT: denies: ear pain, ear discharge, nose pain, nose discharge, nose congestion , mouth pain, mouth swelling, throat pain, throat swelling, other Respiratory: denies: cough, dry, shortness of breath, hemoptysis, SOB with excertion, pleuritic pain, sputum, wheezing, other Cardiovascular: reports: chest pain. denies: palpitations, orthopnea, paroxysmal noc. dyspnea, edema, light headedness, other Gastrointestinal: reports: nausea, other (dry heaving). denies: vomiting, abdominal pain, diarrhea, constipation, melena, hematochezia Genitourinary: denies: dysuria, frequency, incontinence, hematuria, retention, other Musculoskeletal: reports: shoulder pain (left shoulder). denies: neck pain, arm pain, back pain, hand pain, leg pain, foot pain, other Skin: denies: rash, lesions, nathaniel, bruising, other Neurological: denies: weakness, numbness, incoordination, change in speech, confusion, seizures, other Hospitalist History - Past Medical History Source: patient Cardiac: reports: HTN, Hyperlipidemia Rheumatologic: reports: Gout, Rheumatoid arthritis, Other (Lupus) Endocrine: reports: Diabetes, Hypothyroidism - Exam General - other findings: Appears to be in intermittent discomfort Eye: PERRL, anicteric sclera ENT: normocephalic atraumatic, no oropharyngeal lesions, moist mucosa Neck: supple, symmetric, no lymphadenopathy Heart: RRR Heart - other findings: anterior chest wall tenderness to palpation Respiratory: CTAB, no wheezes, no rales, no ronchi, normal chest expansion, no tachypnea Gastrointestinal: soft, non-tender, non-distended, normal bowel sounds Extremities: no cyanosis, no clubbing, no edema Skin: normal turgor, no lesions Neurological: cranial nerve grossly intact, normal sensation to touch, no weakness, no focal deficits Musculoskeletal: normal tone, normal strength, no muscle wasting Psychiatric: normal affect, normal behavior, A&O x 3 Hospitalist Results - Labs Result Diagrams: 02/03/19 17:55 02/03/19 17:55 Lab results: WBC 8.9 thou/uL (4.8-10.8) 02/03/19 17:55 Hgb 13.0 g/dL (12.0-16.0) 02/03/19 17:55 Hct 39.0 % (36.0-47.0) 02/03/19 17:55 MCV 89.4 fL (78.0-98.0) 02/03/19 17:55 Plt Count 307 thou/uL (130-400) 02/03/19 17:55 Neutrophils % 54.6 % (42.0-75.0) 02/03/19 17:55 Sodium 137 mmol/L (136-145) 02/03/19 17:55 Potassium 3.4 mmol/L (3.5-5.1) L 02/03/19 17:55 Chloride 104 mmol/L (98-107) 02/03/19 17:55 Carbon Dioxide 21 mmol/L (23-31) L 02/03/19 17:55 BUN 12 mg/dL (9.8-20.1) 02/03/19 17:55 Creatinine 0.73 mg/dL (0.6-1.1) 02/03/19 17:55 Glucose 136 mg/dL (80-115) H 02/03/19 17:55 Calcium 10.2 mg/dL (7.8-10.44) 02/03/19 17:55 Total Bilirubin 0.8 mg/dL (0.2-1.2) 02/03/19 17:55 AST 18 U/L (5-34) 02/03/19 17:55 ALT 14 U/L (8-55) 02/03/19 17:55 Alkaline Phosphatase 89 U/L (40-110) 02/03/19 17:55 Creatine Kinase 312 U/L (29-168) H 02/03/19 17:55 Troponin I Less than 0.010 ng/mL (< 0.028) 02/03/19 17:55 Serum Total Protein 7.5 g/dL (6.0-8.3) 02/03/19 17:55 Albumin 4.4 g/dL (3.4-4.8) 02/03/19 17:55 - Radiology Interpretation Chest x-ray Status: report reviewed by [place] Hospitalist H&P A/P - Problem (1) Chest pain Code(s): R07.9 - CHEST PAIN, UNSPECIFIED Status: Acute Qualifiers: Chest pain type: chest pain on breathing Qualified Code(s): R07.1 - Chest pain on breathing; R07.81 - Pleurodynia (2) Nausea Code(s): R11.0 - NAUSEA Status: Acute (3) Hypertension Code(s): I10 - ESSENTIAL (PRIMARY) HYPERTENSION Status: Chronic (4) DM type 2 (diabetes mellitus, type 2) Status: Chronic Qualifiers: 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 Repeat EKG stat. Continue to trend troponins. BP low at [address] Dissection ordered. Normal saline bolus 250 cc, then 75 cc/hr, monitor BP. Nitro prn (hold if BP low). Tramadol ordered for pain as well (she normally takes at home). Add-on BNP and Mg+. Cardiology consult, given normal stress test in 08/2018. Last echo in 01/2018. Low blood glucose, will give dextrose and monitor glucose. Hold meds and monitor glucose. Will discuss with Dr. Hernandez for further recommendations.
[2019-02-03] MEDS ORDERED: Ezetimibe 10 MG TAB PO SCH (21:00)
[2019-02-03] MEDS ORDERED: Atorvastatin Calcium 20 MG TAB PO SCH (21:00)
[2019-02-03] MEDS ORDERED: HumaLOG 300 UNITS/3 ML VIAL SC PRN ×2 (21:03)
[2019-02-03] MEDS ORDERED: Dextrose 50% Abboject 50 ML SYRINGE SLOW IVP PRN (21:03)
[2019-02-03] MEDS ORDERED: Dextrose 5% in Water 1,000 ML IV PRN (21:03)
--- NOTE | 2019-02-03 21:44 | CT ---
EXAM: CT ANGIOGRAM OF THE THORACIC AORTA CT ANGIOGRAM OF THE ABDOMINAL AORTA. 02/03/19 COMPARISON: 08/19/17 HISTORY: Severe chest pain. Hypotension. Shortness of breath. Evaluate for thoracic or abdominal aortic dissec tion. FINDINGS: CHEST CT: No mediastinal mass, lymphadenopathy or hematoma. Heart size is upper normal. No significant pericar dial fluid. The lower neck and axilla are unremarkable. Trachea and central bronchi are patent. No pleural effusion. There are patchy ground glass opacities scattered throughout the lung parenchyma. No masses or consol idation. No suspicious nodules. No air bronchograms. ABDOMEN CT: Appropriate arterial phase enhancement of the spleen, pancreas and adrenal glands. There appears to b e a hypodensity involving the left hepatic lobe, with a vessel coursing through this hypodense lesion . A second hypodensity is noted in the hepatic parenchyma near the falciform ligament. Focal areas of fatty infiltration are suspected. No enhancing masses. No gastrohepatic, retrocrural or periportal lymphadenopathy. Symmetric enhancement of the kidneys. Bilaterally, no obstructive uropathy. The visualized mesentery is unremarkable. No mass, lymphadenopathy, free air or free fluid. The visualized alimentary canal is grossly unremarkable. Limited evaluation due to lack of oral contr ast administration. There are a few upper normal fluid filled loops of small bowel, nonspecific. Vent ral abdominal wall dehiscence containing mesenteric fat is noted. OSSEOUS STRUCTURES: Stable degenerative changes of the spine. No fracture. CT ANGIOGRAM: The aortic root is unremarkable. The ascending thoracic aorta, aortic arch, descending thoracic aorta and abdominal aorta have a normal caliber. No periaortic fat stranding. No aneurysm. No dissection. Aortic bifurcation and visualized iliac arteries are also unremarkable. The celiac artery origin, sup erior mesenteric artery origin, bilateral renal artery origins and inferior mesenteric artery have ap propriate enhancement and luminal diameter. The origin of the great vessels of the neck is also unrem arkable. There is adequate contrast opacification of the central pulmonary arteries, without filling defect to suggest thromboembolism. IMPRESSION: 1. Stable hypodensities involving the hepatic parenchyma likely representing areas of fatty infi ltration. These hypodensities are noted on the CT from August of 2017. 2. Appropriate enhancement and luminal diameter of the thoracic and abdominal aorta. No evidence of aneurysm or dissection. 3. Patchy ground glass opacities in the lung bases, nonspecific. 4. Slightly prominent fluid filled loops of small bowel, incompletely evaluated. If there is con cern for bowel obstruction, consider dedicated abdomen and pelvic CT with oral and IV contrast. POS: [facility]
[2019-02-03 21:49] LABS: Troponin I 0.024 ng/mL (< 0.028)
[2019-02-03] MEDS: Famotidine/PF 20 mg/2ml Vial SLOW IVP SCH (21:57)
[2019-02-04] MEDS ORDERED: Dextrose 5% in Water 1,000 ML IV SCH (00:45)
[2019-02-04 01:19] LABS: Troponin I 0.025 ng/mL (< 0.028)
[2019-02-04] MEDS ORDERED: Sodium Chloride 0.9% 1,000 ML IV SCH (05:45)
[2019-02-04 05:56] LABS: #Basophils 0.1 thou/uL (0.0-0.2); #Eosinphils 0.3 thou/uL (0.0-0.7); #Lymphocytes 2.4 thou/uL (1.20-3.40); #Monocytes 0.7 thou/uL (0.11-0.59); #Neutrophils 1.8 thou/uL (1.40-6.50); %Basophils 1.7 % (0.0-1.0); %Eosinophils 5.4 % (0.0-10.0); %Lymphocytes 45.3 % (21.0-51.0); %Neutrophils 34.6 % (42.0-75.0); Hemoglobin 11.7 g/dL (12.0-16.0); Mean Corpuscular HGB CONC 33.6 g/dL (32.0-36.0); Mean Corpuscular Hemoglobin 30.4 pg (27.0-31.0); Mean Corpuscular Volume 90.5 fL (78.0-98.0); Mean Platelet Volume 7.5 fL (7.4-10.4); Platelet Count 260 thou/uL (130-400); RBC Distribution Width 14.1 % (11.5-14.5); Red Blood Cell (RBC) Count 3.84 mill/uL (4.20-5.40); White Blood Cell (WBC) Count 5.3 thou/uL (4.8-10.8)
[2019-02-04] MEDS ORDERED: Levothyroxine Sodium 50 MCG TAB PO SCH (06:00)
[2019-02-04 06:51] LABS: Anion Gap 12 mmol/L (10-20); BUN (Urea Nitrogen) 14 mg/dL (9.8-20.1); Calc. Creatinine Clearance 85 mL/min (70-130); Calcium 9.2 mg/dL (7.8-10.44); Carbon Dioxide 23 mmol/L (23-31); Cardiac Risk 3.3 (Less than 4.5); Chloride 104 mmol/L (98-107); Cholesterol 204 mg/dl (< 200 Desired); Estimated GFR-MDRD Greater than 90; Glucose 401 mg/dL (80-115); HDL Cholesterol 62 mg/dL (>60 Neg Risk); LDL Cholesterol, Calculated 129 mg/dL; Potassium 4.4 mmol/L (3.5-5.1); Sodium 135 mmol/L (136-145); Triglycerides 63 mg/dL (Less than 150)
[2019-02-04] MEDS: Famotidine/PF 20 mg/2ml Vial SLOW IVP SCH (08:28)
[2019-02-04] MEDS ORDERED: Colchicine 0.6 MG TAB PO SCH (09:00)
[2019-02-04] MEDS ORDERED: Aspirin 81 mg Enteric Coated Tablet PO SCH (09:00)
[2019-02-04] MEDS ORDERED: Communication Order-Pharmacy FS SCH (09:30)
[2019-02-04] MEDS ORDERED: Lidocaine 1% (PF) 30 ML VIAL ONE (09:47)
[2019-02-04] MEDS ORDERED: Midazolam HCl 2 mg/2 ml Vial ONE (10:25)
[2019-02-04] MEDS ORDERED: Nitroglycerin 0.4 MG TAB (25 Tab Bottle) SL PRN (10:50)
[2019-02-04] MEDS ORDERED: Sodium Chloride 0.9% 200 ML IV PRN (10:50)
[2019-02-04] MEDS ORDERED: Acetaminophen/Codeine 30-300mg Tablet PO PRN ×2 (10:50)
[2019-02-04 11:42] VITALS: TEMP 97.9
--- NOTE | 2019-02-04 15:10 | CON ---
DATE OF CONSULTATION: HISTORY OF PRESENT ILLNESS: The patient is a 68-year-old woman, who presents with recurrent chest discomfort. The patient has a previous history of coronary artery disease. In February 2015, she underwent a cardiac catheterization. She was found to have normal left ventricular systolic function with a 20% LAD lesion. The patient has continued to have difficulty with recurrent chest discomfort. She was admitted in 2017 with chest pain. She underwent a stress test that revealed no evidence of ischemia. In September 2017, she also underwent a PET scan, which revealed normal left ventricular systolic function with no evidence of ischemia. The patient presented once again earlier this year with chest pain. She underwent another Cardiolite stress test that revealed no evidence of ischemia. The patient continues to report left-sided chest pain that occurs with and without exertion. The patient states it lasted several hours and she came to the emergency room. The patient has multiple cardiac risk factors including hypertension, diabetes mellitus, and a long history of tobacco abuse. PAST MEDICAL HISTORY: 1. Diabetes mellitus. 2. Hypertension. 3. Dyslipidemia. 4. Rheumatoid arthritis. 5. History of DVT. PAST SURGICAL HISTORY: and hysterectomy. SOCIAL HISTORY: Long history of tobacco abuse. FAMILY HISTORY: No strong family history of heart disease. ALLERGIES: NO KNOWN DRUG ALLERGIES. REVIEW OF SYSTEMS: Ten-point system is otherwise unremarkable. PHYSICAL EXAMINATION: GENERAL: Anxious woman, in no acute distress. VITAL SIGNS: Blood pressure 143/67. NECK: No jugular venous distention. LUNGS: Clear to auscultation. HEART: Regular rate and rhythm. Normal S1 and S2. No murmurs. ABDOMEN: Nondistended. EXTREMITIES: Show no edema. VASCULAR: Radial pulse 2+. LABORATORY DATA: White blood cell count 5.3, hemoglobin 11.7, hematocrit 47.7, platelets 260. Sodium was 135, potassium 4.4, chloride 104, bicarbonate 23, BUN 14, creatinine 0.76, glucose 401. Her EKG revealed her to have normal sinus rhythm, normal ECG. ASSESSMENT AND PLAN: 1. Chest pain, recurrent. 2. History of mild coronary artery disease. 3. Hypertension. 4. Dyslipidemia. 5. Diabetes mellitus. 6. Tobacco abuse. This patient continues to report recurrent chest pain. She has undergone multiple stress tests, which have not revealed evidence of ischemia. With recurrent symptoms, I discussed the options with the patient for her to undergo a repeat catheterization. The risks involved with the procedure were explained to the patient and the patient wished to proceed. Job ID: [id number] [facility]
[2019-02-04 15:47] VITALS: BP 136/61
[2019-02-04] MEDS ORDERED: Iopamidol 370 76% 100 ML VIAL ONE (17:40)
--- NOTE | 2019-02-05 14:34 | DIS ---
DATE OF ADMISSION: 02/03/2019 DATE OF DISCHARGE: 02/04/2019 DISCHARGE DIAGNOSES: 1. Chest pain, recurrent. 2. Hypertension. 3. Hyperlipidemia. 4. Diabetes mellitus. 5. Tobacco abuse. HISTORY OF PRESENT ILLNESS: This patient is a 68-year-old female, who presented reporting chest pain. The patient apparently had a prior history of some coronary artery disease, was nonobstructive. She had recurrent chest pain in a prior stress test, which remained negative. However, she continued to return as on this occasion with recurrent chest pain. Her initial workup was negative and she was placed on observation. HOSPITAL COURSE: She had no findings on telemetry. Troponins remain negative. She was seen in consultation by Cardiology, who felt that it was reasonable to consider doing a heart catheterization given the recurrent nature of her symptoms. The patient consented and she did undergo heart catheterization on 02/04/2019, which was negative. With that, the patient's exam did reveal some left-sided parasternal tenderness to palpation concerning for possible costochondritis. The patient did have some hypoglycemia on the night of her admission, requiring some IV dextrose, which subsequently caused hyperglycemia. She had sliding scale insulin and that did actually improve her blood sugars before the time of discharge. The patient had her 4 hours post cath, she was getting up and around, felt a little stiff in the leg, but it was more likely related to chronic arthritis changes. PHYSICAL EXAMINATION: VITAL SIGNS: At the time of discharge, temperature 97.9, pulse 79, respirations 16, O2 saturations 99% on room air, and BP 136/61. GENERAL APPEARANCE: Age-appropriate female, in no distress. Awake and alert. HEART: Regular rate and rhythm. She has no murmurs, gallops, or rubs. LUNGS: Clear. ABDOMEN: Benign. EXTREMITIES: No edema. DISPOSITION: The patient is discharged to home. DISCHARGE INSTRUCTIONS: She will have ibuprofen 400 mg q.8 hours p.r.n. left-sided chest pain. She is encouraged not to take this for more than 2 to 3 days. She will also have her nighttime insulin dose reduced from 30 units to 20 units of the 75/25 Humalog mixture. She should follow up with Dr. Mumtaz Sutton in next available appointment and she can return to the hospital should she have any problems prior to that time. Job ID: [id number]
--- NOTE | 2019-02-08 17:08 | EKG ---
Test Reason : STAT Blood Pressure : / mmHG Vent. Rate : 081 BPM Atrial Rate : 081 BPM P-R Int : 138 ms QRS Dur : 074 ms QT Int : 422 ms P-R-T Axes : 063 010 046 degrees QTc Int : 490 ms Normal sinus rhythm Low voltage QRS Prolonged QT Abnormal ECG When compared with ECG of 30-DEC-2018 02:09, No significant change was found Confirmed by LEXUS MOORE ([id number]) on 02/08/2019 5:08:11 PM Referred By: LETY GUNN Confirmed By:LEXUS MOORE
--- NOTE | 2019-02-14 10:48 | EKG ---
Test Reason : REPEAT
--- NOTE | 2019-02-14 10:48 | EKG ---
Test Reason : Blood Pressure : / mmHG Vent. Rate : 089 BPM Atrial Rate : 089 BPM P-R Int : 128 ms QRS Dur : 076 ms QT Int : 388 ms P-R-T Axes : 056 006 048 degrees QTc Int : 472 ms Normal sinus rhythm Normal ECG Confirmed by EVELYN PHILLIP, HANSA Travis ([id number]), make up editor PERRY YATES ([id number]) on 02/14/2019 10:47:50 AM Referred By: Confirmed By:HANSA RIVAS MD
== END 2019-02-04 17:59 | disposition home or self-care (01) ==
LOC: ERS 17:28 → 2SW 19:52
PROVIDERS: ADMIT Internal Medicine; ATTEND Internal Medicine
PROC: 4A023N7 Measurement of Cardiac Sampling and Pressure, Left Heart, Percutaneous Approach (ICD-10-PCS; principal; 2019-02-03)
PROC: B2111ZZ Fluoroscopy of Multiple Coronary Arteries using Low Osmolar Contrast (ICD-10-PCS; 2019-02-03)
DX: R07.1 Chest pain on breathing (principal); I25.10 Atherosclerotic heart disease of native coronary artery without angina pectoris; I10 Essential (primary) hypertension; E78.5 Hyperlipidemia, unspecified; E11.649 Type 2 diabetes mellitus with hypoglycemia without coma; F17.210 Nicotine dependence, cigarettes, uncomplicated; E03.9 Hypothyroidism, unspecified; M10.9 Gout, unspecified; M06.9 Rheumatoid arthritis, unspecified; Z86.718 Personal history of other venous thrombosis and embolism; Z79.4 Long term (current) use of insulin; Z79.82 Long term (current) use of aspirin; Z79.899 Other long term (current) drug therapy
CPT/HCPCS: 71045; 71275; 72191; 74175; 80048; 80061; 82550; 82962 ×2; 83735; 83880; 84439; 84484 ×3; 85025; 93005; 93458; 96361; 96365; 96366; 96375 ×3; 96376; 97139; 99285; C1769; G0378 ×3; 36415; 36416; 80053; 84443; 93010; 96374; 99152; J1644; J1885; J2001; J2250; J2405; J3480; Q9966; Q9967; S0028

== ENCOUNTER 2019-03-18 15:42 | Emergency (ER) | payer MEDICARE, OTHER ==
[2019-03-18] MEDS ORDERED: Aspirin Chewable 81 MG TAB ONE ×2 (18:48→18:49)
[2019-03-18 18:53] LABS: #Basophils 0.1 thou/uL (0.0-0.2); #Eosinphils 0.2 thou/uL (0.0-0.7); #Lymphocytes 3.1 thou/uL (1.20-3.40); #Monocytes 0.9 thou/uL (0.11-0.59); #Neutrophils 3.7 thou/uL (1.40-6.50); %Basophils 1.2 % (0.0-1.0); %Eosinophils 2.7 % (0.0-10.0); %Lymphocytes 38.2 % (21.0-51.0); %Monocytes 11.6 % (0.0-10.0); %Neutrophils 46.2 % (42.0-75.0); Hemoglobin 12.4 g/dL (12.0-16.0); Mean Corpuscular HGB CONC 32.5 g/dL (32.0-36.0); Mean Corpuscular Hemoglobin 29.7 pg (27.0-31.0); Mean Corpuscular Volume 91.5 fL (78.0-98.0); Mean Platelet Volume 6.8 fL (7.4-10.4); Platelet Count 303 thou/uL (130-400); RBC Distribution Width 13.5 % (11.5-14.5); Red Blood Cell (RBC) Count 4.18 mill/uL (4.20-5.40); White Blood Cell (WBC) Count 8.1 thou/uL (4.8-10.8)
--- NOTE | 2019-03-18 19:00 | RAD ---
EXAM: Chest 2 views: HISTORY: Chest pain COMPARISON: 12/09/2013 FINDINGS: There is a normal-sized cardiomediastinal silhouette. There is no evidence of consolidation, mass, or pleural effusion. Degenerative changes are seen in the spine. Hardware is seen in the cervical spine. IMPRESSION: No evidence of acute cardiopulmonary disease
[2019-03-18 19:12] LABS: ALT (SGPT) 10 U/L (8-55); AST (SGOT) 14 U/L (5-34); Albumin 4.3 g/dL (3.4-4.8); Alkaline Phosphatase 101 U/L (40-110); Anion Gap 13 mmol/L (10-20); BUN (Urea Nitrogen) 15 mg/dL (9.8-20.1); Bilirubin, Total 0.4 mg/dL (0.2-1.2); CK (CPK) 71 U/L (29-168); Calc. Creatinine Clearance 0 mL/min (70-130); Calcium 9.7 mg/dL (7.8-10.44); Carbon Dioxide 28 mmol/L (23-31); Chloride 103 mmol/L (98-107); Estimated GFR-MDRD Greater than 90; Globulin 2.5 g/dL (2.4-3.5); Potassium 3.8 mmol/L (3.5-5.1); Protein, Total 6.8 g/dL (6.0-8.3); Sodium 140 mmol/L (136-145)
[2019-03-18 19:16] LABS: Glucose 57 mg/dL (80-115)
[2019-03-18] MEDS ORDERED: Morphine 4 MG/ML VIAL ONE (20:57)
[2019-03-18] MEDS ORDERED: Ondansetron PF 4 MG/2 ML Vial ONE (20:58)
== END 2019-03-19 00:04 | disposition home or self-care (01) ==
LOC: ERS 15:42
DX: M62.838 Other muscle spasm (principal); E11.649 Type 2 diabetes mellitus with hypoglycemia without coma; R07.89 Other chest pain; E78.5 Hyperlipidemia, unspecified; E78.00 Pure hypercholesterolemia, unspecified; F41.9 Anxiety disorder, unspecified; F17.210 Nicotine dependence, cigarettes, uncomplicated; E03.9 Hypothyroidism, unspecified; Z79.82 Long term (current) use of aspirin; Z79.4 Long term (current) use of insulin
CPT/HCPCS: 36415; 36416; 71046; 80053; 82550; 84484; 85025; 93005; 96374; 96375; J2270; J2405

== ENCOUNTER 2019-05-18 09:35 | Emergency (ER) | payer MEDICARE, OTHER ==
[2019-05-18 10:13] LABS: Bilirubin Negative (Negative); Blood, Urine Negative (Negative); Clarity Clear (Clear); Glucose, Urine (Dipstick) Greater than 1000 mg/dL (Negative); Leukocyte Negative Leu/uL (Negative); Nitrite Negative (Negative); Protein, Urine (Dipstick) 10 mg/dL (Neg-Trace); Urobilinogen Normal mg/dL (Less than 2)
[2019-05-18 10:21] LABS: #Lymphocytes 1.1 thou/uL (1.20-3.40); #Monocytes 0.3 thou/uL (0.11-0.59); #Neutrophils 5.2 thou/uL (1.40-6.50); %Basophils 0.5 % (0.0-1.0); %Eosinophils 0.6 % (0.0-10.0); %Lymphocytes 16.5 % (21.0-51.0); %Monocytes 5.1 % (0.0-10.0); %Neutrophils 77.3 % (42.0-75.0); Hemoglobin 14.1 g/dL (12.0-16.0); Mean Corpuscular HGB CONC 32.3 g/dL (32.0-36.0); Mean Corpuscular Hemoglobin 29.8 pg (27.0-31.0); Mean Corpuscular Volume 92.4 fL (78.0-98.0); Mean Platelet Volume 7.7 fL (7.4-10.4); Platelet Count 273 thou/uL (130-400); RBC Distribution Width 13.6 % (11.5-14.5); Red Blood Cell (RBC) Count 4.73 mill/uL (4.20-5.40); White Blood Cell (WBC) Count 6.7 thou/uL (4.8-10.8)
--- NOTE | 2019-05-18 10:37 | CT ---
CT Brain WO Con History: Fall. Comparison: None. Findings: No acute hemorrhage or infarct. No midline shift or mass effect. Ventricular size and extra -axial CSF spaces are normal. Calvarium is intact. The paranasal sinuses and mastoids are clear. Impression: No acute intracranial abnormality.
[2019-05-18 10:38] LABS: ALT (SGPT) 11 U/L (8-55); AST (SGOT) 18 U/L (5-34); Albumin 3.9 g/dL (3.4-4.8); Alkaline Phosphatase 86 U/L (40-110); Anion Gap 16 mmol/L (10-20); BUN (Urea Nitrogen) 9 mg/dL (9.8-20.1); Bilirubin, Total 0.3 mg/dL (0.2-1.2); CK (CPK) 73 U/L (29-168); Calc. Creatinine Clearance 0 mL/min (70-130); Calcium 9.2 mg/dL (7.8-10.44); Carbon Dioxide 23 mmol/L (23-31); Chloride 108 mmol/L (98-107); Estimated GFR-MDRD Greater than 90; Globulin 3.1 g/dL (2.4-3.5); Potassium 3.2 mmol/L (3.5-5.1); Sodium 144 mmol/L (136-145)
[2019-05-18 10:42] LABS: Glucose 39 mg/dL (80-115)
[2019-05-18] MEDS ORDERED: Potassium Chloride 20 MEQ TAB ONE (11:05)
--- NOTE | 2019-05-18 11:28 | RAD ---
PORTABLE CHEST: Date: 05/18/2019 HISTORY: Syncope. COMPARISON: 02/03/19 exam. FINDINGS: The heart size is borderline in size. Mediastinal structures appear unremarkable. The lungs show chronic manager surendra change. IMPRESSION: Borderline heart size with some mild chronic interstitial lung change. POS: [facility]
[2019-05-18] MEDS ORDERED: Ketorolac Tromethamine 30 MG/ML VIAL ONE (14:24)
[2019-05-18] MEDS ORDERED: Lorazepam 1 MG TAB ONE (14:25)
== END 2019-05-18 14:44 | disposition short-term general hospital (02) ==
LOC: ERS 09:35
DX: R07.9 Chest pain, unspecified (principal); E78.5 Hyperlipidemia, unspecified; E78.00 Pure hypercholesterolemia, unspecified; E03.9 Hypothyroidism, unspecified; M06.9 Rheumatoid arthritis, unspecified; M10.9 Gout, unspecified; F41.9 Anxiety disorder, unspecified; F17.210 Nicotine dependence, cigarettes, uncomplicated; Z79.82 Long term (current) use of aspirin; Z79.4 Long term (current) use of insulin; W06.XXXA Fall from bed, initial encounter
CPT/HCPCS: 36415; 36416; 70450; 71045; 80053; 81003; 82550; 84484; 85025; 93005; 96372; J1885

== ENCOUNTER 2019-06-18 17:27 | Emergency (ER) | payer MEDICARE, OTHER ==
[~2019-06-18 17:27] MED LIST changes: -ISOVUE-370 76%-LOCM 1 ML ONE; +Iopamidol-370 76% 500 ML 1 ML ONE
--- NOTE | 2019-06-18 18:02 | RAD ---
XR Chest 1 View Portable History: Chest pain Comparison: Radiograph May 18, 2019 Findings: Lungs are relatively clear. No pneumothorax. No effusion. No airspace consolidation. Impression: No acute intrathoracic abnormality.
[2019-06-18 18:45] LABS: #Basophils 0.1 thou/uL (0.0-0.2); #Eosinphils 0.1 thou/uL (0.0-0.7); #Lymphocytes 2.7 thou/uL (1.20-3.40); #Monocytes 0.5 thou/uL (0.11-0.59); #Neutrophils 4.2 thou/uL (1.40-6.50); %Basophils 1.9 % (0.0-1.0); %Eosinophils 1.8 % (0.0-10.0); %Lymphocytes 35.3 % (21.0-51.0); %Neutrophils 55.1 % (42.0-75.0); Hemoglobin 13.2 g/dL (12.0-16.0); Mean Corpuscular HGB CONC 32.7 g/dL (32.0-36.0); Mean Corpuscular Hemoglobin 29.3 pg (27.0-31.0); Mean Corpuscular Volume 89.7 fL (78.0-98.0); Mean Platelet Volume 7.5 fL (7.4-10.4); Platelet Count 283 thou/uL (130-400); RBC Distribution Width 13.5 % (11.5-14.5); Red Blood Cell (RBC) Count 4.48 mill/uL (4.20-5.40); White Blood Cell (WBC) Count 7.7 thou/uL (4.8-10.8)
[2019-06-18 19:06] LABS: ALT (SGPT) 13 U/L (8-55); AST (SGOT) 15 U/L (5-34); Albumin 4.4 g/dL (3.4-4.8); Alkaline Phosphatase 118 U/L (40-110); Anion Gap 16 mmol/L (10-20); BUN (Urea Nitrogen) 14 mg/dL (9.8-20.1); Bilirubin, Total 0.8 mg/dL (0.2-1.2); CK (CPK) 77 U/L (29-168); Calc. Creatinine Clearance 0 mL/min (70-130); Calcium 9.5 mg/dL (7.8-10.44); Carbon Dioxide 22 mmol/L (23-31); Chloride 101 mmol/L (98-107); Estimated GFR-MDRD 70; Globulin 3.2 g/dL (2.4-3.5); Glucose 366 mg/dL (80-115); Protein, Total 7.6 g/dL (6.0-8.3); Sodium 135 mmol/L (136-145)
--- NOTE | 2019-06-18 19:42 | CT ---
CTA Angio Chest W WO Con History: Chest pain Comparison: Chest radiograph same day Findings: CT angiogram chest performed after the intravenous administration of contrast. 3-D renderin g provided. No proximal segmental pulmonary arterial filling defect. No significant pericardial fluid. Heart size mildly enlarged. Pulmonary trunk is dilated measuring 31 mm. No aneurysmal dilatation of the aorta. Upper abdomen appears unremarkable aside from a wedge shaped h ypodensity in hepatic segment 8 similar to the January 2019 exam. There is focal thinning of the left ventricular apex myometrium. Groundglass nodule within the anterior segment right upper lobe measures 15 mm, slightly more conflue nt in the comparison exam and 2018 and 2017. No acute displaced rib fracture. No acute osseous abnormality. Old sternal injury. Impression: 1. No pulmonary embolus. 2. 15 mm ground glass nodule anterior segment right upper lobe can be seen dating back to 2017 and 16 with slight increased confluence, likely atypical adenomatous hyperplasia. Follow-up CT of the chest in 6 months-1 years recommended. 3. No evidence for pneumonia. 4. Pulmonary hypertension with dilated pulmonary trunk as well as left and right main pulmonary arter ies. 5. Similar appearance of the wedge-shaped hypodensity hepatic segment 8 likely focal fatty infiltrati on.
== END 2019-06-18 20:22 | disposition home or self-care (01) ==
LOC: ERS 17:27
DX: R07.9 Chest pain, unspecified (principal); E11.9 Type 2 diabetes mellitus without complications; E78.5 Hyperlipidemia, unspecified; E78.00 Pure hypercholesterolemia, unspecified; E03.9 Hypothyroidism, unspecified; M06.9 Rheumatoid arthritis, unspecified; M10.9 Gout, unspecified; F41.9 Anxiety disorder, unspecified; F17.210 Nicotine dependence, cigarettes, uncomplicated; Z79.4 Long term (current) use of insulin; Z79.82 Long term (current) use of aspirin
CPT/HCPCS: 36416; 71045; 71275; 80053; 82550; 84484; 85025; 93005; 96360; Q9967

== ENCOUNTER 2020-03-04 14:55 | Outpatient (CLI) | payer MEDICARE, OTHER ==
--- NOTE | 2020-03-04 16:05 | CT ---
Exam: Noncontrast soft tissue neck CT HISTORY: Left-sided neck and facial pain. Ear pain. Symptoms x2 weeks. Difficulty chewing on the left side. Previous cervical fusion FINDINGS: Lack of IV contrast limits evaluation Visualized brain parenchyma and orbits are grossly unremarkable Adequate aeration of visualized paranasal sinuses and mastoid air cells. No abnormality with regards to the cartilaginous portion of either external auditory canal. There is no prevertebral soft tissue swelling. Aerodigestive tract is patent. No mucosal abnormality. No obvious masses in the oral cavity. Evaluati on is limited by dental amalgam artifact. Midline fatty raphae of the tongue is preserved. Slight asymmetric narrowing of the left piriform sinus likely due to benign apposition of the mucosa. Epiglottis is normal caliber. Preepiglottic fat is preserved. No obvious abnormality with regards to the supraglottic, glottic and subglottic larynx. There is medi alization of the with asymmetric prominence of the piriform sinus. Symmetric attenuation of the parotid and submandibular glands. Just superior to the left submandibula r gland is a soft tissue mass measuring 1.4 x 1.2 cm (axial image #30). Characterization is incomplete. Lymph node versus accessory salivary gland are differential considerations. Symmetric attenuation of the sternocleidomastoid muscles and paraspinal muscles. No evidence of lymphadenopathy by size criteria Grossly the cervical carotid arteries are patent There is cervical fusion from C4 through C7. No perihardware lucency. Straightening of normal cervica l lordosis. Varying degrees of central canal stenosis and neural foraminal narrowing. Technique limits evaluation. No acute abnormality in the upper mediastinum and lung apices. Atherosclerosis of the visualized aorta. IMPRESSION: 1. No evidence of a sialolith. No evidence of inflammatory change with regards to the sublingual glan ds. 2. Adequate aeration of the mastoid air cells and middle ears. No obvious abnormality involving the c artilaginous portion of the left or right external auditory canal. 3. Incompletely characterized lymph node versus accessory salivary gland in the left neck. If there i s concern, postcontrast imaging can be performed. 4. Medialization of the right vocal cord is suspected. Direct visualization is recommended. Transcribed Date/Time: 03/04/2020 4:27 PM
== END 2020-03-04 14:56 | disposition home or self-care (01) ==
LOC: BICCT 14:55
PROVIDERS: ATTEND Specialist
DX: R51.9 Headache, unspecified (principal)
CPT/HCPCS: 70490

== ENCOUNTER 2022-07-22 18:49 | Emergency (ER) | payer MEDICARE, OTHER ==
[2022-07-22] MEDS ORDERED: Cephalexin 250 MG CAP ONE (19:42)
[2022-07-22] MEDS ORDERED: Sulfameth/Trimethoprim DS 800-160mg TAB ONE (19:42)
[2022-07-22] MEDS ORDERED: Ketorolac Tromethamine 30 MG/ML VIAL ONE (19:42)
[2022-07-22 20:29] LABS: #Basophils 0.1 thou/uL (0.0-0.2); #Eosinphils 0.1 thou/uL (0.0-0.7); #Lymphocytes 2.6 thou/uL (1.20-3.40); #Monocytes 0.9 thou/uL (0.11-0.59); #Neutrophils 6.4 thou/uL (1.40-6.50); %Basophils 0.5 % (0.0-1.0); %Eosinophils 1.2 % (0.0-10.0); %Lymphocytes 25.7 % (21.0-51.0); %Monocytes 9.1 % (0.0-10.0); %Neutrophils 63.5 % (42.0-75.0); Hemoglobin 13.4 g/dL (12.0-16.0); Mean Corpuscular HGB CONC 34.7 g/dL (32.0-36.0); Mean Corpuscular Hemoglobin 31.7 pg (27.0-31.0); Mean Corpuscular Volume 91.2 fl (78.0-98.0); Mean Platelet Volume 7.6 fL (7.4-10.4); Platelet Count 301 10x3/uL (130-400); RBC Distribution Width 14.2 % (11.5-14.5); Red Blood Cell (RBC) Count 4.22 mill/uL (4.20-5.40); White Blood Cell (WBC) Count 10.1 10x3/uL (4.8-10.8)
[2022-07-22 21:26] LABS: Albumin 4.5 g/dL (3.4-4.8)
[2022-07-22 21:27] LABS: Chloride 102 mmol/L (98-107); Potassium 3.4 mmol/L (3.5-5.1); Sodium 133 mmol/L (136-145)
[2022-07-22 21:28] LABS: Calcium 10.2 mg/dL (7.8-10.44)
[2022-07-22 21:29] LABS: Globulin 3.4 g/dL (2.4-3.5); Glucose 319 mg/dL (83-110); Protein, Total 7.9 g/dL (5.8-8.1)
[2022-07-22 21:30] LABS: Anion Gap 16 mmol/L (10-20); Carbon Dioxide 18 mmol/L (23-31)
[2022-07-22 21:31] LABS: Alkaline Phosphatase 119 U/L (40-110); Bilirubin, Total 0.7 mg/dL (0.2-1.2)
[2022-07-22 21:32] LABS: Calc. Creatinine Clearance 0 mL/min (70-130); Estimated GFR 68
[2022-07-22 21:33] LABS: BUN (Urea Nitrogen) 15 mg/dL (9.8-20.1)
[2022-07-22 21:34] LABS: AST (SGOT) 15 U/L (5-34)
[2022-07-22 21:35] LABS: ALT (SGPT) 14 U/L (8-55)
== END 2022-07-22 20:38 | disposition home or self-care (01) ==
LOC: ERS 18:49
DX: L03.116 Cellulitis of left lower limb (principal); E11.9 Type 2 diabetes mellitus without complications; E78.00 Pure hypercholesterolemia, unspecified; E03.9 Hypothyroidism, unspecified; F17.210 Nicotine dependence, cigarettes, uncomplicated; Z79.4 Long term (current) use of insulin; Z79.82 Long term (current) use of aspirin
CPT/HCPCS: 36415; 80053; 85025; 96372; J1885

== ENCOUNTER 2023-01-22 11:40 | Inpatient (IN) | payer MEDICARE, OTHER ==
[2023-01-22] MEDS ORDERED: HYDROcodone/Acetaminophen 5/325 mg Tablet ONE (13:38)
[2023-01-22 14:59] LABS: #Basophils 0.1 thou/uL (0.0-0.2); #Eosinphils 0.2 thou/uL (0.0-0.7); #Monocytes 1.2 thou/uL (0.11-0.59); #Neutrophils 6.1 thou/uL (1.40-6.50); %Basophils 0.7 % (0.0-1.0); %Eosinophils 1.5 % (0.0-10.0); %Lymphocytes 23.4 % (21.0-51.0); %Monocytes 12.4 % (0.0-10.0); %Neutrophils 61.8 % (42.0-75.0); Hematocrit 41.1 % (36.0-47.0); Mean Corpuscular HGB CONC 31.6 g/dL (32.0-36.0); Mean Corpuscular Hemoglobin 28.8 pg (27.0-31.0); Mean Corpuscular Volume 90.9 fl (78.0-98.0); Mean Platelet Volume 10.4 fL (7.4-10.4); Platelet Count 243 10x3/uL (130-400); RBC Distribution Width 14.3 % (11.5-14.5); Red Blood Cell (RBC) Count 4.52 mill/uL (4.20-5.40); White Blood Cell (WBC) Count 9.8 10x3/uL (4.8-10.8)
[2023-01-22 15:23] LABS: Troponin I 0.031 ng/mL (< 0.028)
[2023-01-22 15:27] LABS: ALT (SGPT) 8 U/L (8-55); AST (SGOT) 14 U/L (5-34); Alkaline Phosphatase 101 U/L (40-110); Anion Gap 15 mmol/L (10-20); BUN (Urea Nitrogen) 7 mg/dL (9.8-20.1); Bilirubin, Total 0.5 mg/dL (0.2-1.2); Calc. Creatinine Clearance 0 mL/min (70-130); Calcium 10.1 mg/dL (7.8-10.44); Carbon Dioxide 21 mmol/L (23-31); Chloride 103 mmol/L (98-107); Estimated GFR 92; Globulin 3.5 g/dL (2.4-3.5); Glucose 111 mg/dL (83-110); Potassium 3.6 mmol/L (3.5-5.1); Protein, Total 7.5 g/dL (5.8-8.1); Sodium 135 mmol/L (136-145); Uric Acid Less than 2.0 mg/dL (2.6-6.0)
[2023-01-22] MEDS ORDERED: Aspirin Chewable 81 MG TAB ONE (16:39)
[2023-01-22 16:58] LABS: Magnesium 1.6 mg/dL (1.6-2.6)
[2023-01-22] MEDS ORDERED: Morphine 4 MG/ML VIAL ONE (19:49)
[2023-01-22] MEDS ORDERED: Glucagon 1 MG/ML KIT IM PRN (20:05)
[2023-01-22] MEDS ORDERED: Dextrose 50% Abboject 50 ML SYRINGE SLOW IVP PRN (20:05)
[2023-01-22] MEDS ORDERED: Dextrose 5% in Water 1,000 ML IV PRN (20:05)
[2023-01-22] MEDS ORDERED: Piperacillin/Tazobactam 3.375 GM in Sodium Chloride 0.9% 100 ML IVPB SCH (20:15)
[2023-01-22] MEDS ORDERED: Ondansetron PF 4 MG/2 ML Vial IVP PRN (20:44)
[2023-01-22] MEDS ORDERED: Ondansetron ODT 4 MG TAB PO PRN (20:44)
[2023-01-22] MEDS ORDERED: Acetaminophen 650 MG Suppository PR PRN (20:44)
[2023-01-22] MEDS ORDERED: Piperacillin/Tazobactam 3.375 GM VIAL ONE (22:18)
[2023-01-22 22:28] VITALS: BMI 32.5
[2023-01-23 00:02] LABS: Troponin I 0.025 ng/mL (< 0.028)
[2023-01-23] MEDS ORDERED: Piperacillin/Tazobactam 3.375 GM VIAL ONE ×2 (01:34→09:05)
[2023-01-23] MEDS: Piperacillin/Tazobactam 3.375 GM in Sodium Chloride 0.9% 100 ML IVPB SCH ×4 (01:42→23:54)
[2023-01-23 02:43] LABS: #Basophils 0.1 thou/uL (0.0-0.2); #Eosinphils 0.2 thou/uL (0.0-0.7); #Monocytes 0.9 thou/uL (0.11-0.59); #Neutrophils 3.1 thou/uL (1.40-6.50); %Basophils 0.8 % (0.0-1.0); %Eosinophils 3.5 % (0.0-10.0); %Lymphocytes 34.3 % (21.0-51.0); %Monocytes 13.2 % (0.0-10.0); Hematocrit 38.5 % (36.0-47.0); Hemoglobin 12.3 g/dL (12.0-16.0); Mean Corpuscular HGB CONC 31.9 g/dL (32.0-36.0); Mean Corpuscular Hemoglobin 28.8 pg (27.0-31.0); Mean Corpuscular Volume 90.2 fl (78.0-98.0); Mean Platelet Volume 9.6 fL (7.4-10.4); Platelet Count 286 10x3/uL (130-400); RBC Distribution Width 14.4 % (11.5-14.5); Red Blood Cell (RBC) Count 4.27 mill/uL (4.20-5.40); White Blood Cell (WBC) Count 6.5 10x3/uL (4.8-10.8)
[2023-01-23 03:03] LABS: Anion Gap 14 mmol/L (10-20); BUN (Urea Nitrogen) 6 mg/dL (9.8-20.1); Calc. Creatinine Clearance 84 mL/min (70-130); Calcium 9.5 mg/dL (7.8-10.44); Carbon Dioxide 21 mmol/L (23-31); Chloride 103 mmol/L (98-107); Estimated GFR 83; Glucose 398 mg/dL (83-110); Potassium 3.8 mmol/L (3.5-5.1); Sodium 134 mmol/L (136-145)
[2023-01-23] MEDS ORDERED: Morphine 4 MG/ML VIAL ONE (03:28)
[2023-01-23] MEDS: Morphine 4 MG/ML VIAL SLOW IVP PRN ×2 (03:31→12:09)
[2023-01-23] MEDS ORDERED: Acetaminophen 325 MG TAB ONE (09:03)
[2023-01-23] MEDS: Acetaminophen 325 MG TAB PO PRN ×2 (09:15→17:29)
[2023-01-23] MEDS: HumaLOG 300 UNITS/3 ML VIAL SC PRN ×3 (12:08→21:27)
[2023-01-23] MEDS ORDERED: Colchicine 0.3 MG TAB PO SCH (12:54)
[2023-01-23 13:26] LABS: Hemoglobin A1c 10.5 % (4.0-6.0)
[2023-01-23 13:40] LABS: Troponin I 0.026 ng/mL (< 0.028)
[2023-01-23] MEDS ORDERED: HumuLIN 70/30 100 Unit/ ml 10 ml Vial SC SCH (21:00)
[2023-01-23] MEDS: Colchicine 0.3 MG TAB PO SCH (21:12)
[2023-01-24] MEDS: Acetaminophen 325 MG TAB PO PRN ×2 (04:04→15:13)
[2023-01-24] MEDS: HumaLOG 300 UNITS/3 ML VIAL SC PRN ×3 (05:49→11:09)
[2023-01-24] MEDS: Piperacillin/Tazobactam 3.375 GM in Sodium Chloride 0.9% 100 ML IVPB SCH ×2 (08:33→17:05)
[2023-01-24] MEDS: Morphine 4 MG/ML VIAL SLOW IVP PRN ×2 (08:35→19:41)
[2023-01-24] MEDS: Aspirin 81 mg Enteric Coated Tablet PO SCH (08:35)
[2023-01-24] MEDS: HumuLIN 70/30 100 Unit/ ml 10 ml Vial SC SCH (11:09)
[2023-01-24] MEDS: Colchicine 0.3 MG TAB PO SCH ×2 (11:10→19:40)
[2023-01-24] MEDS ORDERED: HumuLIN 70/30 100 Unit/ ml 10 ml Vial SC SCH (21:00)
[2023-01-25] MEDS: Piperacillin/Tazobactam 3.375 GM in Sodium Chloride 0.9% 100 ML IVPB SCH ×3 (00:04→17:29)
[2023-01-25] MEDS: Acetaminophen 325 MG TAB PO PRN ×2 (04:15→12:51)
[2023-01-25 04:58] LABS: Anion Gap 13 mmol/L (10-20); BUN (Urea Nitrogen) 11 mg/dL (9.8-20.1); Calc. Creatinine Clearance 89 mL/min (70-130); Calcium 9.2 mg/dL (7.8-10.44); Carbon Dioxide 24 mmol/L (23-31); Chloride 103 mmol/L (98-107); Estimated GFR 89; Glucose 307 mg/dL (83-110); Potassium 4.2 mmol/L (3.5-5.1); Sodium 136 mmol/L (136-145)
[2023-01-25] MEDS: Colchicine 0.3 MG TAB PO SCH ×2 (08:30→21:54)
[2023-01-25] MEDS: Aspirin 81 mg Enteric Coated Tablet PO SCH (08:30)
[2023-01-25] MEDS: HumuLIN 70/30 100 Unit/ ml 10 ml Vial SC SCH (08:31)
[2023-01-25] MEDS: HumaLOG 300 UNITS/3 ML VIAL SC PRN ×3 (12:45→21:56)
[2023-01-25] MEDS ORDERED: HumuLIN 70/30 100 Unit/ ml 10 ml Vial SC SCH (21:00)
[2023-01-25] MEDS ORDERED: Ketorolac Tromethamine 30 MG/ML VIAL IVP SCH (21:15)
[2023-01-26] MEDS: Piperacillin/Tazobactam 3.375 GM in Sodium Chloride 0.9% 100 ML IVPB SCH ×4 (00:52→17:14)
[2023-01-26] MEDS: HumuLIN 70/30 100 Unit/ ml 10 ml Vial SC SCH (08:45)
[2023-01-26] MEDS: Aspirin 81 mg Enteric Coated Tablet PO SCH (08:45)
[2023-01-26] MEDS: Acetaminophen 325 MG TAB PO PRN (08:48)
[2023-01-26] MEDS: Colchicine 0.3 MG TAB PO SCH (10:01)
[2023-01-26] MEDS: HumaLOG 300 UNITS/3 ML VIAL SC PRN ×2 (12:43→17:14)
[2023-01-26 17:05] VITALS: BP 126/66; TEMP 97.6
== END 2023-01-26 19:15 | DRG 637 ==
LOC: ERS 11:40 → ERHOLD 19:38 → OBSVTOIN 20:04 → 2NO 01-23 09:45
PROVIDERS: ADMIT Student in an Organized Health Care Education/Training Program; ATTEND Internal Medicine
DX: E11.628 Type 2 diabetes mellitus with other skin complications (principal); I21.A1 Myocardial infarction type 2; E87.1 Hypo-osmolality and hyponatremia; L03.115 Cellulitis of right lower limb; E11.9 Type 2 diabetes mellitus without complications; M06.9 Rheumatoid arthritis, unspecified; M32.9 Systemic lupus erythematosus, unspecified; M10.9 Gout, unspecified; E03.9 Hypothyroidism, unspecified; E78.5 Hyperlipidemia, unspecified; R53.81 Other malaise; R07.89 Other chest pain; Z79.899 Other long term (current) drug therapy; Z79.890 Hormone replacement therapy; Z79.82 Long term (current) use of aspirin; Z79.4 Long term (current) use of insulin; Z90.710 Acquired absence of both cervix and uterus; Z98.890 Other specified postprocedural states
CPT/HCPCS: 36415; 36416; 71045; 80048; 80053; 83036; 83735; 83880; 84439; 84443; 84484; 84550; 85025; 86140; 93005; 93923; 96374; J1650; J1815; J1885; J2270; J2543; J3490; J7070

== ENCOUNTER 2023-10-16 15:08 | Inpatient (IN) | payer MEDICARE, OTHER ==
[~2023-10-16 15:08] MED LIST changes: -Iopamidol-370 76% 500 ML 1 ML ONE; +Iopamidol-370 76% 500 ML MDV (1 ML CHARGE) ONE
[2023-10-16 16:00] LABS: #Basophils 0.04 10x3/uL (0.0-0.2); %Basophils 0.7 % (0.0-1.0); %Eosinophils 5.5 % (0.0-10.0); %Monocytes 11.5 % (0.0-10.0); %Neutrophils 43.1 % (42.0-75.0); Hematocrit 35.6 % (36.0-47.0); Hemoglobin 11.9 g/dL (12.0-16.0); Mean Corpuscular HGB CONC 33.4 g/dL (32.0-36.0); Mean Corpuscular Hemoglobin 28.6 pg (27.0-31.0); Mean Corpuscular Volume 85.6 fL (78.0-98.0); Mean Platelet Volume 10.2 fL (7.4-10.4); Platelet Count 231 10x3/uL (130-400); RBC Distribution Width 14.6 % (11.5-14.5); Red Blood Cell (RBC) Count 4.16 mill/uL (4.20-5.40)
[2023-10-16 16:09] LABS: ALT (SGPT) 12 U/L (8-55); AST (SGOT) 20 U/L (5-34); Albumin 3.3 g/dL (3.4-4.8); Alkaline Phosphatase 115 U/L (40-110); Anion Gap 13 mmol/L (10-20); BUN (Urea Nitrogen) 9 mg/dL (9.8-20.1); Bilirubin, Total 0.5 mg/dL (0.2-1.2); Calc. Creatinine Clearance 0 mL/min (70-130); Calcium 9.5 mg/dL (7.8-10.44); Carbon Dioxide 23 mmol/L (23-31); Chloride 108 mmol/L (98-107); Estimated GFR 85; Globulin 3.2 g/dL (2.4-3.5); Glucose 305 mg/dL (83-110); Potassium 3.7 mmol/L (3.5-5.1); Protein, Total 6.5 g/dL (5.8-8.1); Sodium 140 mmol/L (136-145)
[2023-10-16] MEDS ORDERED: Aspirin Chewable 81 MG TAB ONE (17:08)
[2023-10-16] MEDS ORDERED: fentaNYL 50 mcg/mL 1 mL Vial ONE (17:08)
[2023-10-16] MEDS ORDERED: Glucagon 1 MG/ML KIT IM PRN (18:00)
[2023-10-16] MEDS ORDERED: Calcium Carbonate 500 MG ChewTAB PO PRN (18:00)
[2023-10-16] MEDS ORDERED: Cyclobenzaprine 10 MG TAB PO PRN (18:00)
[2023-10-16] MEDS ORDERED: Dextrose 50% Abboject 50 ML SYRINGE SLOW IVP PRN (18:00)
[2023-10-16] MEDS ORDERED: Acetaminophen 650 MG Suppository PR PRN (18:00)
[2023-10-16] MEDS ORDERED: Nitroglycerin 0.4 MG TAB (25 Tab Bottle) SL PRN (18:00)
[2023-10-16] MEDS ORDERED: Senokot S 8.6-50 MG TAB PO PRN (18:00)
[2023-10-16] MEDS ORDERED: HumaLOG 300 UNITS/3 ML VIAL SC PRN ×2 (18:00)
[2023-10-16] MEDS ORDERED: Ondansetron ODT 4 MG TAB PO PRN (18:00)
[2023-10-16] MEDS ORDERED: Dextrose 5% in Water 1,000 ML IV PRN (18:00)
[2023-10-16] MEDS ORDERED: Ondansetron PF 4 MG/2 ML Vial IVP PRN (18:00)
[2023-10-16 20:55] VITALS: BMI 32.8
[2023-10-16] MEDS: Rosuvastatin 20 MG TAB PO SCH (21:39)
[2023-10-16] MEDS: Colchicine 0.3 MG TAB PO SCH (21:39)
[2023-10-16] MEDS: Clopidogrel Bisulfate 75 MG TAB PO SCH (21:39)
[2023-10-16 22:47] LABS: Troponin I 0.033 ng/mL (< 0.028)
[2023-10-17 04:37] LABS: #Basophils 0.05 10x3/uL (0.0-0.2); %Eosinophils 8.1 % (0.0-10.0); %Lymphocytes 44.1 % (21.0-51.0); %Monocytes 12.5 % (0.0-10.0); %Neutrophils 34.1 % (42.0-75.0); Hematocrit 34.3 % (36.0-47.0); Hemoglobin 11.3 g/dL (12.0-16.0); Mean Corpuscular HGB CONC 32.9 g/dL (32.0-36.0); Mean Corpuscular Hemoglobin 29.6 pg (27.0-31.0); Mean Corpuscular Volume 89.8 fL (78.0-98.0); Platelet Count 213 10x3/uL (130-400); RBC Distribution Width 14.6 % (11.5-14.5); Red Blood Cell (RBC) Count 3.82 mill/uL (4.20-5.40)
[2023-10-17 04:56] LABS: ALT (SGPT) 11 U/L (8-55); AST (SGOT) 23 U/L (5-34); Albumin 2.9 g/dL (3.4-4.8); Alkaline Phosphatase 97 U/L (40-110); Anion Gap 11 mmol/L (10-20); BUN (Urea Nitrogen) 11 mg/dL (9.8-20.1); Bilirubin, Total 0.5 mg/dL (0.2-1.2); Calc. Creatinine Clearance 95 mL/min (70-130); Carbon Dioxide 24 mmol/L (23-31); Chloride 107 mmol/L (98-107); Estimated GFR 92; Globulin 2.9 g/dL (2.4-3.5); Glucose 223 mg/dL (83-110); Potassium 3.6 mmol/L (3.5-5.1); Protein, Total 5.8 g/dL (5.8-8.1); Sodium 138 mmol/L (136-145)
[2023-10-17] MEDS: HumaLOG 300 UNITS/3 ML VIAL SC PRN ×2 (06:09→21:15)
[2023-10-17 11:03] VITALS: BMI 32.8
[2023-10-17] MEDS ORDERED: Regadenoson 0.4 MG/5 ML SYRINGE ONE (11:24)
[2023-10-17] MEDS: Aspirin 81 mg Enteric Coated Tablet PO SCH (13:29)
[2023-10-17] MEDS: Ranolazine ER 500 MG TAB PO SCH (13:32)
[2023-10-17] MEDS: Isosorbide Mononitrate 60 MG ER.TAB PO SCH (13:32)
[2023-10-17 17:45] LABS: Glucose 505 mg/dL (83-110)
[2023-10-17] MEDS: Insulin Glargine 30 UNITS/0.3 ML VIAL SC SCH (18:09)
[2023-10-17] MEDS ORDERED: Dextrose 5% in Water 1,000 ML IV PRN (18:54)
[2023-10-17] MEDS ORDERED: Glucagon 1 MG/ML KIT IM PRN (18:54)
[2023-10-17] MEDS ORDERED: Dextrose 50% Abboject 50 ML SYRINGE SLOW IVP PRN (18:54)
[2023-10-17] MEDS ORDERED: Nitroglycerin 0.4 MG TAB (25 Tab Bottle) SL PRN (18:59)
[2023-10-17] MEDS: Acetaminophen 325 MG TAB PO PRN (19:34)
[2023-10-17] MEDS: Pantoprazole DR 40 MG TAB PO SCH (19:37)
[2023-10-17] MEDS: Gabapentin 300 MG CAP PO SCH (21:15)
[2023-10-18] MEDS: Pantoprazole DR 40 MG TAB PO SCH (08:42)
[2023-10-18] MEDS: HumaLOG 300 UNITS/3 ML VIAL SC PRN (12:40)
[2023-10-18] MEDS: traMADol HCl 50 MG TAB PO SCH (12:41)
[2023-10-18 16:23] VITALS: BP 124/65; TEMP 97.8
== END 2023-10-18 17:31 | disposition home or self-care (01) | DRG 313 ==
LOC: ERS 15:08 → 2NO 17:02 → OBSVTOIN 10-17 17:11
PROVIDERS: ADMIT Internal Medicine; ATTEND Family Medicine
DX: R07.89 Other chest pain (principal); F17.210 Nicotine dependence, cigarettes, uncomplicated; E78.5 Hyperlipidemia, unspecified; E11.9 Type 2 diabetes mellitus without complications; E03.9 Hypothyroidism, unspecified; M10.9 Gout, unspecified; I25.10 Atherosclerotic heart disease of native coronary artery without angina pectoris; M06.9 Rheumatoid arthritis, unspecified; F41.9 Anxiety disorder, unspecified; Z79.82 Long term (current) use of aspirin; Z79.4 Long term (current) use of insulin; Z79.02 Long term (current) use of antithrombotics/antiplatelets; Z79.899 Other long term (current) drug therapy; Z90.710 Acquired absence of both cervix and uterus; Z48.812 Encounter for surgical aftercare following surgery on the circulatory system; Z98.61 Coronary angioplasty status
CPT/HCPCS: 36415; 36416; 70450; 71045; 71275; 74174; 78452; 80053; 83880; 84484; 85025; 93005; 93017; 93798; 94760; 96374; A9502; G0378; J1815; J2785; J3010; Q9967

== ENCOUNTER 2024-01-03 11:18 | Emergency (ER) | payer MEDICARE, OTHER ==
[2024-01-03 13:58] LABS: #Basophils 0.04 10x3/uL (0.0-0.2); %Basophils 0.6 % (0.0-1.0); %Eosinophils 0.8 % (0.0-10.0); %Lymphocytes 13.1 % (21.0-51.0); %Monocytes 12.9 % (0.0-10.0); %Neutrophils 72.3 % (42.0-75.0); Hematocrit 32.1 % (36.0-47.0); Hemoglobin 10.7 g/dL (12.0-16.0); Mean Corpuscular HGB CONC 33.3 g/dL (32.0-36.0); Mean Corpuscular Hemoglobin 30.1 pg (27.0-31.0); Mean Corpuscular Volume 90.4 fL (78.0-98.0); Mean Platelet Volume 9.7 fL (7.4-10.4); Platelet Count 192 10x3/uL (130-400); RBC Distribution Width 14.9 % (11.5-14.5); Red Blood Cell (RBC) Count 3.55 mill/uL (4.20-5.40)
[2024-01-03 14:10] LABS: ALT (SGPT) 12 U/L (8-55); AST (SGOT) 22 U/L (5-34); Albumin 3.2 g/dL (3.4-4.8); Alkaline Phosphatase 71 U/L (40-110); Anion Gap 13 mmol/L (10-20); BUN (Urea Nitrogen) 7 mg/dL (9.8-20.1); Bilirubin, Total 0.8 mg/dL (0.2-1.2); Calc. Creatinine Clearance 0 mL/min (70-130); Calcium 8.8 mg/dL (7.8-10.44); Carbon Dioxide 22 mmol/L (23-31); Chloride 103 mmol/L (98-107); Estimated GFR 94; Globulin 2.9 g/dL (2.4-3.5); Glucose 270 mg/dL (83-110); Protein, Total 6.1 g/dL (5.8-8.1); Sodium 135 mmol/L (136-145)
[2024-01-03 14:15] LABS: Troponin I 0.038 ng/mL (< 0.028)
[2024-01-03] MEDS ORDERED: Potassium Chloride 20 MEQ TAB ONE (15:01)
[2024-01-03 15:46] LABS: Influenza A by NAA Not Detected (NotDetected); Influenza B by NAA Not Detected (NotDetected); SARS-CoV-2 NAA Rapid Test DETECTED (NotDetected)
[2024-01-03 16:16] LABS: Bacteria/HPF None Seen HPF (None Seen); Bilirubin Negative (Negative); Blood, Urine Negative (Negative); CAUTI Indications for Culture Dysuria,urgency,freq; Clarity Clear (Clear); Glucose, Urine (Dipstick) Greater than 1000 mg/dL (Negative); Ketone, Urine 20 mg/dL (Negative); Leukocyte Negative Leu/uL (Negative); Nitrite Negative (Negative); Protein, Urine (Dipstick) Negative (Neg-Trace); RBC/HPF 0-3 HPF (0-3); Specific Gravity, Urine 1.012 (1.002-1.036); Squamous Epithelial 0-3 HPF (0-3); Urobilinogen Normal mg/dL (Less than 2); WBC/HPF 0-3 HPF (0-3)
[2024-01-03 16:23] LABS: Urine Culture Reflex No No
[2024-01-03 16:25] LABS: Troponin I 0.034 ng/mL (< 0.028)
[2024-01-03] MEDS ORDERED: Acetaminophen 500 MG TAB ONE (16:38)
== END 2024-01-03 21:10 ==
LOC: ERS 11:18
DX: U07.1 COVID-19 (principal); I10 Essential (primary) hypertension; E11.9 Type 2 diabetes mellitus without complications; F17.210 Nicotine dependence, cigarettes, uncomplicated; Z79.82 Long term (current) use of aspirin; Z79.4 Long term (current) use of insulin
CPT/HCPCS: 0240U; 71046; 80053; 81001; 83605; 84484 ×2; 85025; 87040; 93005; 96360; 96361; 99285; 36415; 36416